=== PATIENT | male | born 1950 | race Caucasian/White ===

== ENCOUNTER 2016-11-01 12:18 | Outpatient (CLI) | payer MEDICARE, BC | END 2016-11-01 12:19 | disposition home or self-care (01) | DX: E88.81 Metabolic syndrome and other insulin resistance (principal); E78.5 Hyperlipidemia, unspecified; K57.90 Diverticulosis of intestine, part unspecified, without perforation or abscess without bleeding ==

== ENCOUNTER 2017-02-08 14:37 | Outpatient (CLI) | payer MEDICARE, BC ==
--- NOTE | 2017-02-08 18:36 | Ultrasound Report ---
SCROTAL DUPLEX: 02/08/2017 CLINICAL INDICATION: Palpable abnormality left side. TECHNIQUE: Real-time scanning was performed with hobbies and crafts sales representative static images obtained. The right testicle measures 3.2 x 2.7 x 1.8 cm, and the left testicle measures 3.3 x 2.4 x 1.8 cm. B oth testicles demonstrate normal flow and echotexture. The epididymides are unremarkable. No hydroc mitra, varicocele, or hernia is identified. Scanning in the region of palpable abnormality identified by the patient reveals no discrete abnormality. IMPRESSION: NORMAL SCROTAL DUPLEX. JOB #: [id number] EXT JOB #:
== END 2017-02-08 14:38 | disposition home or self-care (01) ==
LOC: DI 14:37
PROVIDERS: ATTEND Family Medicine
DX: N43.40 Spermatocele of epididymis, unspecified (principal)
CPT/HCPCS: 76870

== ENCOUNTER 2017-06-22 10:42 | Outpatient (CLI) | payer MEDICARE, BC | END 2017-06-22 10:43 | disposition home or self-care (01) | LOC: SC 10:42 | PROVIDERS: ATTEND Nurse Practitioner Family | DX: G47.33 Obstructive sleep apnea (adult) (pediatric) (principal); G47.23 Circadian rhythm sleep disorder, irregular sleep wake type | CPT/HCPCS: 99213; G0463; 99212 ==

== ENCOUNTER 2017-11-16 09:01 | Outpatient (CLI) | payer MEDICARE, BC ==
--- NOTE | 2017-11-16 18:56 | MRI Report ---
EXAM: LEFT SHOULDER MRI WITHOUT CONTRAST EXAM DATE: 11/16/2017 09:57 AM. CLINICAL HISTORY: Left shoulder rotator cuff tear. COMPARISON: None. TECHNIQUE: Multiplanar, multisequence T1-weighted and fluid-sensitive sequences of the shoulder witho ut contrast. Other: None. FINDINGS: Acromioclavicular Region: Deformity seen of the distal clavicle with hyperostosis and there is high p osition of the distal clavicle relative to the acromion consistent with prior fracture and probable a cromioclavicular joint separation. There is ankylosis of the acromioclavicular joint. Type II acromio n configuration. Small fluid collection subacromial/subdeltoid bursa. Glenohumeral Region: No subluxation. No effusion or loose bodies. The articular cartilage is unremark able. The glenohumeral ligaments and joint capsule are unremarkable. Bone Marrow: Subcortical degenerative cyst 1.5 cm in height and 7 mm in diameter lesser tuberosity. Labrum: The labrum is unremarkable on this nonarthrographic study. Musculature/Rotator Cuff: The rotator cuff muscles are without atrophy or fatty replacement. There is a partial tear infraspinatus musculotendinous junction fluid signal, 4.5 mm in diameter and 1.1 cm i n length (image 29 series 401). Thickening and intermediate signal is noted of the supraspinatus tend on consistent with supraspinatus tendinosis. Possible tiny 2 mm undersurface fluid signal tear distal anterior supraspinatus tendon. There is distal infraspinatus tendinosis. Small undersurface tear 4 m m, 1 mm thickness undersurface distal infraspinatus tendon (image 13 series 501). Thickening and inte rmediate signal is noted of the subscapularis tendon. There is extensive subscapularis tendinosis. Biceps Tendon: The long head of the biceps tendon and biceps irwin are intact. Other: The subcutaneous tissues are unremarkable. IMPRESSION: 1. Diffuse severe rotator cuff tendinosis with no complete rotator cuff tear identified. 2. There is fluid signal partial interstitial tear infraspinatus musculotendinous junction. 3. Negative for labral tear or internal derangement. RADIA MUSCULOSKELETAL RADIOLOGY SECTION Referring Provider Line: [phone] SITE ID: [id number]
== END 2017-11-16 09:02 | disposition home or self-care (01) ==
LOC: DI 09:01
PROVIDERS: ATTEND Orthopaedic Surgery
DX: M65.819 Other synovitis and tenosynovitis, unspecified shoulder (principal)

== ENCOUNTER 2018-01-03 09:30 | Outpatient (CLI) | payer MEDICARE, BC ==
[2018-01-03 12:36] LABS: BASOPHILS # (AUTO) 0.1 10^3/uL (0.0-0.1); BASOPHILS % (AUTO) 1.8 %; EOSINOPHILS # (AUTO) 0.2 10^3/uL (0.0-0.7); EOSINOPHILS % (AUTO) 4.9 %; HGB - HEMOGLOBIN 15.2 g/dL (14.0-18.0); LYMPHOCYTES # (AUTO) 1.2 10^3/uL (1.5-3.5); LYMPHOCYTES % (AUTO) 30.9 %; MEAN CORPUSCULAR HEMOGLOBIN 31.2 pg (27.0-31.0); MEAN CORPUSCULAR HGB CONC 33.9 g/dL (32.0-36.0); MEAN CORPUSCULAR VOLUME 92.1 fL (80.0-94.0); MEAN PLATELET VOLUME 7.8 fL (7.4-11.4); MONOCYTES # (AUTO) 0.6 10^3/uL (0.0-1.0); NEUTROPHILS # (AUTO) 1.9 10^3/uL (1.5-6.6); NEUTROPHILS % (AUTO) 48.4 %; PLT - PLATELET COUNT 221 10^3/uL (130-450); RED BLOOD COUNT 4.87 10^6/uL (4.70-6.10); RED CELL DISTRIBUTION WIDTH 13.4 % (12.0-15.0)
[2018-01-03 12:48] LABS: ALBUMIN 4.2 g/dL (3.2-5.5); ALKALINE PHOSPHATASE 40 IU/L (42-121); ALT ALANINE AMINOTRANSFERASE 35 IU/L (10-60); AST ASPARTATE AMINOTRANSFERASE 32 IU/L (10-42); BUN - BLOOD UREA NITROGEN 15 mg/dL (6-20); CALCIUM 9.1 mg/dL (8.5-10.3); CARBON DIOXIDE - CO2 26 mmol/L (21-32); CHLORIDE 105 mmol/L (101-111); CREATININE 0.9 mg/dL (0.6-1.2); GFR - MDRD 84 (>89); GLUCOSE 108 mg/dL (70-100); SODIUM 137 mmol/L (135-145); TOTAL PROTEIN 7.4 g/dL (6.7-8.2)
[2018-01-03 12:49] LABS: ALBUMIN/GLOBULIN RATIO 1.3 (1.0-2.2); CHOL/HDL RATIO 3.7 (<5.0); CHOLESTEROL 159 mg/dL; HDL CHOLESTEROL 43 mg/dL; LDL CHOLESTEROL,CALCULATED 96 mg/dL; LDL/HDL RATIO 2.2 (<3.6); VLDL CHOLESTEROL 20 mg/dL
== END 2018-01-03 09:31 | disposition home or self-care (01) ==
LOC: LAB.WCP 09:30
PROVIDERS: ATTEND Family Medicine
DX: I10 Essential (primary) hypertension (principal); K59.00 Constipation, unspecified; E78.9 Disorder of lipoprotein metabolism, unspecified; Z12.5 Encounter for screening for malignant neoplasm of prostate
CPT/HCPCS: 36415; 80053; 80061; 84443; 85025; G0103; 83721; 84153

== ENCOUNTER 2018-07-06 13:51 | Outpatient (CLI) | payer MEDICARE, BC | END 2018-07-06 13:52 | disposition home or self-care (01) | LOC: SC 13:51 | PROVIDERS: ATTEND Nurse Practitioner Family | DX: G47.33 Obstructive sleep apnea (adult) (pediatric) (principal) | CPT/HCPCS: 99214; G0463; 99212 ==

== ENCOUNTER 2019-02-14 10:09 | Outpatient (CLI) | payer MEDICARE, BC ==
[2019-02-14 12:43] LABS: BASOPHILS % (AUTO) 0.8 %; EOSINOPHILS # (AUTO) 0.2 10^3/uL (0.0-0.7); HGB - HEMOGLOBIN 14.8 g/dL (14.0-18.0); LYMPHOCYTES # (AUTO) 1.5 10^3/uL (1.5-3.5); LYMPHOCYTES % (AUTO) 32.2 %; MEAN CORPUSCULAR VOLUME 91.2 fL (80.0-94.0); MEAN PLATELET VOLUME 7.8 fL (7.4-11.4); MONOCYTES # (AUTO) 0.6 10^3/uL (0.0-1.0); MONOCYTES % (AUTO) 13.1 %; NEUTROPHILS # (AUTO) 2.3 10^3/uL (1.5-6.6); NEUTROPHILS % (AUTO) 49.9 %; PLT - PLATELET COUNT 201 10^3/uL (130-450); RED BLOOD COUNT 4.79 10^6/uL (4.70-6.10); RED CELL DISTRIBUTION WIDTH 12.9 % (12.0-15.0); WHITE BLOOD COUNT 4.7 x10^3/uL (4.8-10.8)
[2019-02-14 12:55] LABS: HB2 TOTAL 16.4 g/dL; HEMOGLOBIN A1C 0.62 g/dL; HEMOGLOBIN A1C % 5.6 % (4.6-6.2)
[2019-02-14 12:59] LABS: ALBUMIN 3.8 g/dL (3.2-5.5); ALBUMIN/GLOBULIN RATIO 1.2 (1.0-2.2); ALKALINE PHOSPHATASE 39 IU/L (42-121); ALT ALANINE AMINOTRANSFERASE 24 IU/L (10-60); AST ASPARTATE AMINOTRANSFERASE 27 IU/L (10-42); BILIRUBIN,TOTAL 0.8 mg/dL (0.2-1.0); BUN - BLOOD UREA NITROGEN 18 mg/dL (6-20); CALCIUM 9.1 mg/dL (8.5-10.3); CARBON DIOXIDE - CO2 23 mmol/L (21-32); CHLORIDE 107 mmol/L (101-111); CHOL/HDL RATIO 2.6 (<5.0); CHOLESTEROL 115 mg/dL; CREATININE 0.8 mg/dL (0.6-1.2); GFR - MDRD 96 (>89); GLUCOSE 96 mg/dL (70-100); HDL CHOLESTEROL 44 mg/dL; LDL CHOLESTEROL,CALCULATED 59 mg/dL; LDL/HDL RATIO 1.3 (<3.6); SODIUM 137 mmol/L (135-145); TOTAL PROTEIN 7.1 g/dL (6.7-8.2); VLDL CHOLESTEROL 12 mg/dL
== END 2019-02-14 10:10 | disposition home or self-care (01) ==
LOC: LAB.WCP 10:09
PROVIDERS: ATTEND Family Medicine
DX: I10 Essential (primary) hypertension (principal); R73.01 Impaired fasting glucose; E78.5 Hyperlipidemia, unspecified
CPT/HCPCS: 36415; 80053; 80061; 83036; 83721; 85025

== ENCOUNTER 2019-10-23 08:45 | Outpatient (CLI) | payer MEDICARE, BC ==
--- NOTE | 2019-10-23 09:28 | SLEEP CARE CONSULTATION ---
Information from patient questionnaire entered by Mireay Devine. I have reviewed and concur with the information entered by Mireya Devine. This document represents the service I personally performed and the decisions made by me, Christen Torres, RN, MSN, [employer]. History of Present Illness Previous diagnosis: Mild, Obstructive Sleep Apnea-Hypopnea Syndrome AHI: 6.2 Reason for follow up: first compliance after device update Equipment type: CPAP Equipment obtained from: [facility] Mask style: Nasal pillows Mask brand: Respironics Backup mask available: Yes Last cushion change: 6 weeks ago HPI additional information: Patient started his new CPAP but the auto off was not functioning. He keeps his CPAP below his bed in a drawer with mask only showing and depends on the auto off feature. During this time, his spouse became ill, seen by her provider and hospitalized for about 3 weeks and he forgot about the new CPAP as it was not working like he needs and so began using his old CPAP during this time. He called yesterday to [facility] to get the device looked at no call back yet. He also has not been obtaining updated supplies yet. CPAP Compliance Data - Data Reviewed with Patient Average duration of nightly device use: 8.95 Compliance rate %: 20 (first 30 days)(100 on old device last 30 days) Current pressure setting (cmH2O): 6 Humidity settin Heated hose settin Average residual AHI: 2.8 (new)(3.6 - old) Average large leak: 30-42 sec Subjective Patient concerns: reports: other (Occasionally morning facial stauffer from straps -mask headgear obtained in August ). denies: aerophagia, mask discomfort, air blowing in eyes, mask leak noise, condensation in mask/hose, nasal congestion, dry mouth, nose, throat, epistaxis Observed to snore while using device: No Current pressure setting perceived as: comfortable On therapy, patient: reports: sleeping better, awakening more refreshed, being more awake and alert during the day, more rested overall, drowsiness while driving Initial [place] Sleepiness Scale score: 6 Current [place] Sleepiness Scale score: 7 Allergies and Home Medications Known drug allergies: No Home medication list reviewed: Yes (changes are losartan increased to 25mg daily ) Review of Systems Review of systems same as previous: Yes Physical Exam Blood Pressure: 120/80 Cuff size: long Heart Rate: 71 O2 Saturation: 96 Height: 6 ft 1.5 in Weight: 288 lb 3.2 oz Weight change since last visit: gained 8 pounds Body Mass Index: 37.5 BMI Classification: Obese Impression and Plan 1. Obstructive Sleep Apnea-Hypopnea Syndrome, mild , with poor treatment compliance of new device and good compliance of old CPAP and good apnea control. On CPAP therapy, the patient has better sleep quality and is more rested overall. In regards to his compliance of new device, it appears the auto off needs to be repaired or replaced. Due to busyness of life schedule with spouse hospitalized he forgot he was using the old CPAP instead of new due to its malfunciton. Compliance guidelines and follow up will be scheduled accordingly. To reduce mask stauffer, he is advised to loosen mask slightly. He already uses a type of CPAP pillow. Pad a Cheek cloth skin barrier samples shown that can be ordered to reduce mask stauffer. A pamphlet given about the product was given. He has gained weight which can increase his apnea severtiy and CPAP pressure if continued. He is advised to lose weight. He is advised to consider a diet consultation as a health and wellness coach to get him to his weight loss goal. He would like to lose 40 pounds eventually. Symptoms to report for pressure adjustment discussed. Patient's apnea severity and rationale for treatment to reduce apnea, improve sleep quality and reduce cardiovascular and cerebrovascular events was reviewed. I also reviewed the benefit of consistent device use of CPAP for hypertension. Since his apnea is more severe supine, he is advised to avoid supine sleep if unable to use CPAP, with pillow positioning. * Continue CPAP pressure at 6 cmH2O * Restart new CPAP * Contact Dee re auto -off * Notify me if snoring with mask or feeling that the pressure is too much or too little * Attempt to lose weight * Call this office if any problems using CPAP * Return for follow up in 1 month , or sooner if concerns arise Time Spent with Patient (minutes): 30 I spent 100% of this visit face to face with the patient with greater than 50% of this was spent time counseling the patient and coordination of care.
[2019-10-23 09:29] VITALS: BP 120/80
== END 2019-10-23 08:46 | disposition home or self-care (01) ==
LOC: SC 08:45
PROVIDERS: ATTEND Nurse Practitioner Family
DX: G47.33 Obstructive sleep apnea (adult) (pediatric) (principal); E66.9 Obesity, unspecified; Z68.37 Body mass index [BMI] 37.0-37.9, adult
CPT/HCPCS: 99214; G0463; 99212

== ENCOUNTER 2019-11-14 08:58 | Outpatient (CLI) | payer MEDICARE, BC ==
--- NOTE | 2019-11-14 10:06 | SLEEP CARE CONSULTATION ---
Information from patient questionnaire entered by Mireya Devine. I have reviewed and concur with the information entered by Mireya Devine. This document represents the service I personally performed and the decisions made by me, Christen Torres, RN, MSN, DYE [employer]. History of Present Illness Previous diagnosis: Mild, Obstructive Sleep Apnea-Hypopnea Syndrome AHI: 6.2 Reason for follow up: one month (last chance for compliance) Equipment type: CPAP Equipment obtained from: [facility] Mask style: Nasal pillows Backup mask available: Yes (old mask ) Last cushion change: a month ago HPI additional information: Mask stauffer reduced with headgear adjustment. He has started to work on losing weight. He has adjusted to the new CPAP and has to disconnect hose for the device to turn off on his own as he keeps his CPAP in a drawer under his bed. He has been able to contact [facility] to get supply replacement system in place. CPAP Compliance Data - Data Reviewed with Patient Average duration of nightly device use: 7.5 Compliance rate %: 70 (new CPAP ) Current pressure setting (cmH2O): 6 Humidity settin Heated hose settin Average residual AHI: 4.8 Average large leak: 1 min 23 sec Subjective Missed days of use due to: reports: other (used old CPAP ) Patient concerns: denies: aerophagia, mask discomfort, air blowing in eyes, mask leak noise, condensation in mask/hose, nasal congestion, dry mouth, nose, throat, epistaxis Observed to snore while using device: No Current pressure setting perceived as: comfortable On therapy, patient: reports: sleeping better, awakening more refreshed, being more awake and alert during the day, more rested overall. denies: drowsiness while driving Initial [place] Sleepiness Scale score: 6 Current [place] Sleepiness Scale score: 7 Allergies and Home Medications Known drug allergies: No Home medication list reviewed: Yes (Stopped aspirin, polyglycol replaced with miralax /. no other changes) Review of Systems Review of systems same as previous: Yes Physical Exam Blood Pressure: 124/82 Cuff size: wrist Heart Rate: 72 O2 Saturation: 97 Height: 6 ft 1.5 in Weight: 284 lb 9.6 oz Weight change since last visit: lost 4 pounds Body Mass Index: 37.0 BMI Classification: Obese Impression and Plan 1. Obstructive Sleep Apnea-Hypopnea Syndrome, mild but severe supine , with good treatment compliance and good apnea control. On CPAP therapy, the patient has better sleep quality and is more rested overall. Patient has lost weight since last seen as advised and has been successful by tracking his intake. His residual AHI is slightly higher than last visit even with weight loss. Patient plans to lose about 30 pounds this year. Thus he was advised how his weight affects his CPAP pressure and symptoms to report discussed. I also showed him how to monitor his AHI on his CPAP and to call me if elevated above 5 with rationale discussed. He would prefer not to change to an autoCPAP at this time. Patient's apnea severity and rationale for treatment to reduce apnea, improve sleep quality and reduce cardiovascular and cerebrovascular events was reviewed. I also reviewed the benefit of consistent device use of CPAP for hypertension. Since patient has more severe apnea in supine position, patient advised to avoid supine sleep with pillow positioning if unable to use CPAP while ill or if without electricity to reduce apnea risk. * Continue CPAP pressure at 6 cmH2O * Notify me if snoring with mask or feeling that the pressure is too much or too little * Continue to lose weight * Call this office if any problems using CPAP * Return for follow up in 1 year , or sooner if concerns arise Time Spent with Patient (minutes): 20 I spent 100% of this visit face to face with the patient with greater than 50% of this was spent time counseling the patient and coordination of care.
[2019-11-14 10:07] VITALS: BP 124/82
== END 2019-11-14 08:59 | disposition home or self-care (01) ==
LOC: SC 08:58
PROVIDERS: ATTEND Nurse Practitioner Family
DX: G47.33 Obstructive sleep apnea (adult) (pediatric) (principal); E66.9 Obesity, unspecified; Z68.37 Body mass index [BMI] 37.0-37.9, adult
CPT/HCPCS: 99213; G0463; 99212

== ENCOUNTER 2020-03-27 11:50 | Outpatient (CLI) | payer MEDICARE, BC ==
--- NOTE | 2020-03-27 12:26 | XRAY Report ---
PROCEDURE: Chest 2 View X-Ray INDICATIONS: Cough TECHNIQUE: 2 view(s) of the chest. COMPARISON: None. FINDINGS: Surgical changes and devices: None. Lungs and pleura: No pleural effusions or pneumothorax. Lungs are clear. Mediastinum: Mediastinal contours are normal. Heart size is normal. Bones and chest wall: No suspicious bony abnormalities. Soft tissues appear unremarkable. IMPRESSION: No acute pulmonary process demonstrated radiographically. Reviewed by: Jethro Gonzalez MD on 03/27/2020 12:24 PM PDT Approved by: Jethro Gonzalez MD on 03/27/2020 12:24 PM PDT Station ID: [id number]
== END 2020-03-27 11:51 | disposition home or self-care (01) ==
LOC: DI 11:50
PROVIDERS: ATTEND Family Medicine
DX: R05 Cough (principal)
CPT/HCPCS: 71046

== ENCOUNTER 2020-08-28 09:03 | Outpatient (CLI) | payer MEDICARE, BC ==
--- NOTE | 2020-08-28 09:43 | XRAY Report ---
PROCEDURE: Shoulder 3 View LT INDICATIONS: LEFT SHOULDER PAIN TECHNIQUE: 4 views of the shoulder were acquired. COMPARISON: Prior shoulder MRI 11/16/2017 and 2 view shoulder plain films 11/10/2017. FINDINGS: Bones: No acute fractures or dislocations, but there is distortion of the AC joint and interspace be tween the coracoid process and the undersurface of the distal clavicle, as was previously identified in November 2017. No new abnormality is seen.. No suspicious bony lesions. Visualized ribs appear inta ct. Soft tissues: No suspicious soft tissue calcifications. IMPRESSION: Old trauma is the presumed cause of the distortion of the left shoulder, indicating like lihood of both osteoarthritic change and prior healed and partially healed fracture margins. No defin ite acute disease. Reviewed by: Daniel Mccoy MD on 08/28/2020 9:42 AM PST Approved by: Daniel Mccyo MD on 08/28/2020 9:42 AM PST Station ID: [id number]
== END 2020-08-28 23:59 | disposition home or self-care (01) ==
LOC: DI.N 09:03
PROVIDERS: ATTEND Orthopaedic Surgery
DX: M25.512 Pain in left shoulder (principal)

== ENCOUNTER 2020-12-03 12:54 | Outpatient (CLI) | payer MEDICARE, BC ==
--- NOTE | 2020-12-03 13:38 | SLEEP CARE CONSULTATION ---
Information from patient questionnaire entered by Hu Ocasio. I have reviewed and concur with the information entered by Hu Ocasio. This document represents the service I personally performed and the decisions made by me, Lisa Lau ARNP. History of Present Illness Service Date and Time: 12/03/2020 1254 Previous diagnosis: Mild, Obstructive Sleep Apnea-Hypopnea Syndrome AHI: 6.2 Reason for follow up: annual (Last seen 11/2019) Equipment type: CPAP Equipment obtained from: [facility] (getting supplies as needed) Mask style: Nasal pillows Backup mask available: Yes (old mask) Last cushion change: 2 weeks ago Prior sleep studies: Yes Year and Where: 2013 [facility] additional information: HANG MANCERA was diagnosed to have mild, AHI 6.2, obstructive sleep apnea-hypopnea syndrome and returned today for CPAP therapy annual follow-up. CPAP Compliance Data - Data Reviewed with Patient Average duration of nightly device use: 7 h 31 min Compliance rate %: 96.7 Current pressure setting (cmH2O): 6 Humidity settin Heated hose settin Average residual AHI: 2.4 Average large leak: 3 sec Compliance data discussion: About a year ago he developed shoulder pain. He also got a new bed that is a twin and adjustable. He now moves a lot more when sleeping which is putting more stress on mask connections. Subjective Missed days of use due to: reports: mask issues, travel Patient concerns: reports: mask discomfort, air blowing in eyes, mask leak noise. denies: aerophagia, condensation in mask/hose, nasal congestion, dry mouth, nose, throat, epistaxis, other Observed to snore while using device: No Current pressure setting perceived as: comfortable On therapy, patient: reports: sleeping better, awakening more refreshed, being more awake and alert during the day, more rested overall. denies: drowsiness while driving Initial [place] Sleepiness Scale score: 6 (in 2013) Current [place] Sleepiness Scale score: 6 Allergies and Home Medications Drug allergies reviewed: Yes (NKDA) Home medication list reviewed: Yes (no changes) Review of Systems Review of systems same as previous: Yes (no changes) Physical Exam Heart Rate: 82 O2 Saturation: 95 Height: 6 ft 1.5 in Weight: 275 lb Body Mass Index: 35.8 BMI Classification: Obese Impression and Plan 1. Obstructive Sleep Apnea-Hypopnea Syndrome, mild, with good treatment compliance and good apnea control. On CPAP therapy, the patient has better sleep quality and is more rested overall. He moves more, turning frequently from side to side and this seems to be causing more mask leaking with air in his eyes. This is resolved with adjusting his mask. I advised him to try a CPAP pillow. Mask leaks can be reduced by washing mask daily and changing mask cushions more frequently to improve mask seal and comfort. Additionally, mask leaks predominately from when patient sleeps on their side can be reduced by using a CPAP pillow. A CPAP pillow sample was shown. This and other styes can be purchased online. He voiced understanding and agreement. Patient's apnea severity and rationale for treatment to reduce apnea, improve sleep quality and reduce cardiovascular and cerebrovascular events was reviewed. I also reviewed the benefit of consistent device use of CPAP for hypertension. * Continue auto CPAP pressure at 6 cmH2O * Notify me if snoring with mask or feeling that the pressure is too much or too little * Attempt to lose weight * Call this office if any problems using CPAP * Return for follow up in 1 year, or sooner if concerns arise Counseling Topics: Spare mask, Weight loss health impact Visit Type: In Office Time Spent with Patient (minutes): 20 Provider Statement: I spent 100% of the Face to Face Visit with the patient with greater than 50% spent counseling the patient and coordination of care.
== END 2020-12-03 12:55 | disposition home or self-care (01) ==
LOC: SC 12:54
PROVIDERS: ATTEND Nurse Practitioner Family
DX: G47.33 Obstructive sleep apnea (adult) (pediatric) (principal); E66.9 Obesity, unspecified; Z68.35 Body mass index [BMI] 35.0-35.9, adult
CPT/HCPCS: 99213; G0463; 99212

== ENCOUNTER 2020-12-22 08:00 | Outpatient (CLI) | payer MEDICARE, BC ==
[2020-12-22 18:21] LABS: BASOPHILS % (AUTO) 1.2 %; EOSINOPHILS # (AUTO) 0.1 10^3/uL (0.0-0.7); EOSINOPHILS % (AUTO) 2.6 %; HCT - HEMATOCRIT 45.3 % (42.0-52.0); HGB - HEMOGLOBIN 15.7 g/dL (14.0-18.0); LYMPHOCYTES # (AUTO) 0.8 10^3/uL (1.5-3.5); LYMPHOCYTES % (AUTO) 23.8 %; MEAN CORPUSCULAR HGB CONC 34.7 g/dL (32.0-36.0); MEAN CORPUSCULAR VOLUME 92.4 fL (80.0-94.0); MEAN PLATELET VOLUME 9.5 fL (7.4-11.4); MONOCYTES # (AUTO) 0.6 10^3/uL (0.0-1.0); MONOCYTES % (AUTO) 16.4 %; NEUTROPHILS # (AUTO) 1.9 10^3/uL (1.5-6.6); NEUTROPHILS % (AUTO) 55.7 %; PLT - PLATELET COUNT 246 10^3/uL (130-450); RED CELL DISTRIBUTION WIDTH 12.6 % (12.0-15.0); WHITE BLOOD COUNT 3.4 x10^3/uL (4.8-10.8)
[2020-12-22 18:51] LABS: ALBUMIN 4.2 g/dL (3.2-5.5); ALBUMIN/GLOBULIN RATIO 1.2 (1.0-2.2); ALKALINE PHOSPHATASE 42 IU/L (42-121); ALT ALANINE AMINOTRANSFERASE 23 IU/L (10-60); AST ASPARTATE AMINOTRANSFERASE 22 IU/L (10-42); BUN - BLOOD UREA NITROGEN 18 mg/dL (6-20); CALCIUM 9.2 mg/dL (8.5-10.3); CARBON DIOXIDE - CO2 26 mmol/L (21-32); CHLORIDE 103 mmol/L (101-111); CHOL/HDL RATIO 3.4 (<5.0); CHOLESTEROL 148 mg/dL; CREATININE 0.9 mg/dL (0.6-1.2); GFR - MDRD 83 (>89); GLUCOSE 104 mg/dL (70-100); HDL CHOLESTEROL 44 mg/dL; LDL CHOLESTEROL,CALCULATED 80 mg/dL; LDL/HDL RATIO 1.8 (<3.6); POTASSIUM 4.2 mmol/L (3.5-5.0); SODIUM 136 mmol/L (135-145); TOTAL PROTEIN 7.6 g/dL (6.7-8.2); TRIGLYCERIDES 120 mg/dL; VLDL CHOLESTEROL 24 mg/dL
[2020-12-22 18:52] LABS: THYROID STIMULATING HORMONE 2.06 uIU/mL (0.34-5.60)
[2020-12-22 20:46] LABS: ESTIMATED AVERAGE GLUCOSE 111 mg/dL (70-100); HEMOGLOBIN A1c% 5.5 % (4.27-6.07)
== END 2020-12-22 23:59 | disposition home or self-care (01) ==
LOC: LAB.WCP 08:00
PROVIDERS: ATTEND Internal Medicine
DX: I10 Essential (primary) hypertension (principal); R73.01 Impaired fasting glucose; Z12.5 Encounter for screening for malignant neoplasm of prostate; F34.1 Dysthymic disorder; E78.5 Hyperlipidemia, unspecified
CPT/HCPCS: 36415; 80053; 80061; 83036; 84443; 85025; G0103; 83721; 84153

== ENCOUNTER 2020-12-29 08:00 | Outpatient (CLI) | payer MEDICARE, BC | END 2020-12-29 23:59 | disposition home or self-care (01) | LOC: LAB.WCP 08:00 | PROVIDERS: ATTEND Internal Medicine | DX: G62.9 Polyneuropathy, unspecified (principal) | CPT/HCPCS: 36415; 81599; 82607; 84155; 84165; 84207; 86334 ==

== ENCOUNTER 2021-08-26 08:55 | Outpatient (CLI) | payer MEDICARE, BC ==
[2021-08-26] MEDS ORDERED: ALBUTEROL 1 PUFF INH STA (11:48)
== END 2021-08-26 08:56 | disposition home or self-care (01) ==
LOC: RT 08:55
PROVIDERS: ATTEND Internal Medicine
DX: R06.2 Wheezing (principal); F17.200 Nicotine dependence, unspecified, uncomplicated
CPT/HCPCS: 94060; 94729

== ENCOUNTER 2021-12-25 13:10 | Outpatient (CLI) | payer MEDICARE, BC ==
--- NOTE | 2021-12-25 13:30 | XRAY Report ---
PROCEDURE: Cervical Spine 2 View INDICATIONS: DJD, CERVICAL SPINE TECHNIQUE: 3 view(s) of the cervical spine were acquired. COMPARISON: None. FINDINGS: C-SPINE: No acute, displaced fracture or malalignment. The vertebral body heights are maintained. Mil d disc space height loss and anterior endplate osteophytosis, most prominent at C3-4 and C5-6. Straig htening, which may be due to spasm or positioning. SOFT TISSUES: No prevertebral soft tissue thickening. IMPRESSION: 1.Cervical spine degeneration. Reviewed by: Darwin Garner MD on 12/25/2021 1:29 PM PDT Approved by: Darwin Garner MD on 12/25/2021 1:29 PM PDT Station ID: [id number]
== END 2021-12-25 13:11 | disposition home or self-care (01) ==
LOC: DI.N 13:10
PROVIDERS: ATTEND Internal Medicine
DX: M47.22 Other spondylosis with radiculopathy, cervical region (principal); M50.11 Cervical disc disorder with radiculopathy, high cervical region

== ENCOUNTER 2022-03-30 11:26 | Outpatient (CLI) | payer MEDICARE, BC ==
[2022-03-30 12:03] VITALS: BP 134/86
--- NOTE | 2022-03-30 12:03 | SLEEP CARE CONSULTATION ---
Information from patient questionnaire entered by Jane Rios MA. I have reviewed and concur with the information entered by Jane Rios MA. This document represents the service I personally performed and the decisions made by , Lisa Lau ARNP. History of Present Illness Service Date and Time: 03/30/2022 1126 Previous diagnosis: Mild, Obstructive Sleep Apnea-Hypopnea Syndrome AHI: 6.2 Reason for follow up: annual (LAST SEEN 11/2020, AMARJIT, CONKLIN 08/23/2019,) Equipment type: CPAP Equipment obtained from: Other ([facility]: getting supplies as needed but difficult to work with) Mask style: Nasal pillows Mask brand: Respironics (Nuance) Backup mask available: Yes (old mask) Last cushion change: 1 week Prior sleep studies: Yes Year and Where: 2013 [facility] HPI additional information: HANG MANCERA was diagnosed to have mild, AHI 6.2, obstructive sleep apnea-hypopnea syndrome and returned today for CPAP therapy annual follow-up. Sleep Study - Results Prior sleep studies: Yes Year and Where: 2013 [facility] CPAP Compliance Data - Data Reviewed with Patient Average duration of nightly device use: 7 HOURS 34 MINUTES Compliance rate %: 93.3 (12/28/2021-03/27/2022; 90 days; 88/90 days used) Current pressure setting (cmH2O): 6 Humidity settin Heated hose settin Average residual AHI: 2.5 Average large leak: 4 SECONDS Subjective Missed days of use due to: reports: travel Patient concerns: denies: aerophagia, mask discomfort, air blowing in eyes, mask leak noise, condensation in mask/hose, nasal congestion, dry mouth, nose, throat, epistaxis, other Observed to snore while using device: No Current pressure setting perceived as: comfortable On therapy, patient: reports: sleeping better, awakening more refreshed, being more awake and alert during the day, more rested overall. denies: drowsiness while driving Initial [place] Sleepiness Scale score: 6 (in 2013) Current [place] Sleepiness Scale score: 7 (03/30/2022) Allergies and Home Medications Known drug allergies: No Home medication list reviewed: Yes (Famotidine) Allergy and home medication list: Allergies No Known Drug Allergies Allergy (Verified 12/26/13 15:08) FAMATODINE Review of Systems Review of systems same as previous: Yes (no changes) Physical Exam Vital signs obtained and entered by: Suly RIOS CMA AAW Blood Pressure: 134/86 (LEFT, PULSE 78, RESP 18) Heart Rate: 79 O2 Saturation: 98 Height: 6 ft 1.5 in Weight: 275 lb (CLOTHES) Weight change since last visit: MAINTAIN Body Mass Index: 35.8 BMI Classification: Obese Impression and Plan 1. Obstructive Sleep Apnea-Hypopnea Syndrome, mild, with good treatment compliance and good apnea control. On CPAP therapy, the patient has better sleep quality and is more rested overall. Patient has significant improvement of his sleep apnea and is happy with current pressure settings. Patient denies problems with oral dryness, nasal congestion, epistaxis, skin irritation or aerophagia. Patient's apnea severity and rationale for treatment to reduce apnea, improve sleep quality and reduce cardiovascular and cerebrovascular events was reviewed. I also reviewed the benefit of consistent device use of CPAP for hypertension. 2. Obesity, unspecified. Currently patients BMI is 35.8. Obesity increases the risk of apnea, CPAP pressure requirements and overall health risks especially cardiovascular and diabetes. Thus patient is advised to lose weight. Weight loss can be done with reducing portion size, reducing refined foods and balancing content with vegetables, fruit and whole grain foods. In addition, patient encouraged to get regular exercise. * Continue CPAP pressure at 6 cmH2O * Notify me if snoring with mask or feeling that the pressure is too much or too little * Attempt to lose weight * Call this office if any problems using CPAP * Return for follow up in 1 year, or sooner if concerns arise Counseling Topics: Spare mask, Weight loss health impact Visit Type: In Office Time Spent with Patient (minutes): 22 Provider Statement: I spent 100% of the Face to Face Visit with the patient with greater than 50% spent counseling the patient and coordination of care.
== END 2022-03-30 11:27 | disposition home or self-care (01) ==
LOC: SC 11:26
PROVIDERS: ATTEND Nurse Practitioner Family
DX: G47.33 Obstructive sleep apnea (adult) (pediatric) (principal); E66.9 Obesity, unspecified; Z68.35 Body mass index [BMI] 35.0-35.9, adult
CPT/HCPCS: 99213; G0463; 99212

== ENCOUNTER 2022-05-26 08:13 | Outpatient (CLI) | payer MEDICARE, BC ==
--- NOTE | 2022-05-26 10:17 | CT Report ---
PROCEDURE: Low Dose Lung Cancer Screen INDICATIONS: HIST OF TOBACCO USE TECHNIQUE: Noncontrast low-dose axial images were acquired from the pulmonary apices to the posterior costophren ic angles. Multiplanar MIP reformats were then reconstructed. For radiation dose reduction, the follo wing was used: automated exposure control, adjustment of mA and/or kV according to patient size. COMPARISON: None. FINDINGS: Image quality: Excellent. Lungs and pleura: There are some small calcified and noncalcified pulmonary nodules noted throughout both lungs. The largest noncalcified pulmonary nodule is in the 2 to 3 mm range. There are associate d calcified right hilar and mediastinal lymph nodes consistent with prior granulomatous infection. There is some mild to moderate consolidation/scarring at the patient's right lung base. No pleural ef fusion is identified. Mediastinum: Heart size is normal. No pericardial effusion. No mediastinal adenopathy by size crit eria. Thoracic aorta and central pulmonary arteries are normal in size. Esophagus is normal in chato beatriz. No hiatal hernia. Bones and chest wall: No suspicious bony lesions. No vertebral body compression fractures. No axil antonio or supraclavicular adenopathy by size criteria. The thyroid is normal in size and there are no incidental findings. Abdomen: Visualized upper abdomen solid organs and bowel loops appear normal in the absence of contr ast. IMPRESSION: 1. Small calcified and noncalcified pulmonary nodules. The largest noncalcified pulmonary nodule at t he left apex is in the 2 to 3 mm range. Given the imaging findings I would recommended a noncontrast chest CT in approximately 1 year to evaluate for stability. 2. Mild/moderate area of consolidation/scarring at the patient's right lung base. 3. Mild atherosclerotic change. Reviewed by: John Bucio MD on 05/26/2022 10:16 AM PDT Approved by: John Bucio MD on 05/26/2022 10:16 AM PDT Station ID: [id number]
== END 2022-05-26 08:14 | disposition home or self-care (01) ==
LOC: DI 08:13
PROVIDERS: ATTEND Internal Medicine
DX: Z12.2 Encounter for screening for malignant neoplasm of respiratory organs (principal); F17.210 Nicotine dependence, cigarettes, uncomplicated; F17.290 Nicotine dependence, other tobacco product, uncomplicated

== ENCOUNTER 2022-11-05 07:13 | Outpatient (CLI) | payer MEDICARE, BC ==
--- NOTE | 2022-11-05 14:00 | XRAY Report ---
PROCEDURE: Knee 3 View RT INDICATIONS: KNEE PAIN TECHNIQUE: 3 views of the right knee(s) were acquired. COMPARISON: None. FINDINGS: Bones: No fractures or dislocations. No suspicious bony lesions. Moderate tricompartmental arthri tic narrowing most severe in the lateral compartment. Soft tissues: No joint effusion. Chondrocalcinosis is present. IMPRESSION: Arthritic changes as above. Reviewed by: Indu Vidal MD on 11/05/2022 1:58 PM PST Approved by: Idnu Vidal MD on 11/05/2022 1:58 PM PST Station ID: [id number]
--- NOTE | 2022-11-05 17:00 | MRI Report ---
PROCEDURE: KNEE WO - RT INDICATIONS: RT KNEE PAIN TECHNIQUE: Noncontrast sagittal PD fast spin echo and T2 fast spin echo with fat saturation, sagittal 3-D gradie nt sequence with fat saturation; coronal T1 spin echo and PD fast spin echo with fat saturation, and axial PD fast spin echo with fat saturation through the knee. COMPARISON: 11/05/2022 plain films FINDINGS: Image quality: Excellent. Menisci: There is vague linear oblique high T2 signal intensity traversing the middle and peripheral thirds of the posterior horn medial meniscus (series 6 image 26), suggestive of subtle oblique tearin g. There is a moderately displaced tear of the posterior horn lateral meniscus at the meniscal root l igament insertion site. Linear oblique high T2 signal intensity within the inner, middle, and periphe ral thirds of the lateral meniscal body and posterior horn, demonstrating inferior articular surface extension, indicating oblique tearing. Cruciate ligaments: There is "tram track" high T2/T1 signal intensity along the courses of the anteri or and posterior cruciate ligaments, consistent with myxoid degeneration. No evidence of tearing. Medial structures: The medial collateral ligament appears intact. Visualized portions of the pes ans erinus tendons appear normal. No abnormal bursal fluid. Lateral structures: The lateral collateral ligament demonstrates mild T2 signal elevation at the fem oral origin. The long and short heads of the biceps femoris tendon appear intact. The popliteus tend on appears normal. Iliotibial band appears normal. Anterior structures: The quadriceps and patellar tendons appear intact. Patellar alignment is aisha l. No femoral trochlear dysplasia or ventral trochlear prominence. No edema in the infrapatellar fa t pad. Bones and cartilage: No bone marrow contusions or fractures. There is mild tricompartmental periarti cular osteophyte formation. There is moderate articular cartilage loss diffusely overlying the weight bearing aspects of the medial femoral condyle and medial tibial plateau with superimposed high-grade articular cartilage loss overlying the mid and posterior weightbearing aspects of the medial femoral condyle. Moderate articular cartilage loss diffusely overlies the weightbearing aspects of the latera l femoral condyle and lateral tibial plateau. Superimposed high-grade articular cartilage loss overli es the posterior weightbearing aspect of the lateral tibial plateau. Articular cartilage fibrillation overlies the medial and lateral patellar facets. Joint space: There is a small knee joint effusion and a small Hill's cyst. Small ganglion cyst ethel g the popliteus. Normal appearing synovial plicae are incidentally noted. IMPRESSION: 1. Tricompartmental osteoarthritis with associated articular cartilage loss. 2. 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 3. Low-grade partial-thickness lateral collateral ligament tear. 4. Knee joint effusion. Small ganglion cyst along the popliteus. Reviewed by: Hyun Quick MD on 11/05/2022 4:58 PM PST Approved by: Hyun Quick MD on 11/05/2022 4:58 PM PST Station ID: [id number]
== END 2022-11-05 07:14 | disposition home or self-care (01) ==
LOC: DI 07:13
PROVIDERS: ATTEND Internal Medicine
DX: M17.11 Unilateral primary osteoarthritis, right knee (principal); S83.421A Sprain of lateral collateral ligament of right knee, initial encounter; M25.461 Effusion, right knee; M67.461 Ganglion, right knee; M23.8X1 Other internal derangements of right knee

== ENCOUNTER 2022-12-18 18:15 | Inpatient (IN) | payer MEDICARE, BC ==
[2022-12-18] MEDS ORDERED: iohexoL-300 100 ML VIAL ONE (18:47)
[2022-12-18] MEDS ORDERED: SODIUM CHLORIDE 0.9% 1,000 ML IV STA (18:47)
--- NOTE | 2022-12-18 18:47 | ED Physician Documentation ---
History of Present Illness - Stated complaint Stated Complaint: HIGH BP/DISORIENTED/DIZZY - Chief complaint Chief Complaint: Neuro - Additonal information Additional information: 72-year-old male was brought to the emergency department via private vehicle for evaluation of feeling lightheaded, dizzy and ataxic. Reportedly he was in the kitchen helping prepare dinner when he began to feel lightheaded and dizzy. States he felt off balance. He felt like he was in a fog in his brain. He felt things that were slowing down and then suddenly speeding up. He thought he might do well to sit down. His reports that he was unable to walk without holding onto a wall. She reports that he seemed to make nonsensical words. Patient denies chest pain or shortness of air. No nausea or vomiting. no diplopia, loss of vision. no tinnitus He does have a history of hypertension for which she takes hydrochlorothiazide. Denies any history of coronary artery disease or strokes. Has never been evaluated by systems integration advisor. Occasional cigar smoker. His SBP's typically range 110-130. He checked his blood pressure at home and it was 150/70. onset of symptoms 1600 Review of Systems Constitutional: reports: Reviewed and negative Cardiac: reports: Reviewed and negative Respiratory: reports: Reviewed and negative GI: reports: Reviewed and negative : reports: Reviewed and negative Skin: reports: Reviewed and negative Neurologic: reports: Confused, Other (Ataxia) PD PAST MEDICAL HISTORY - Past Medical History Cardiovascular: High cholesterol Respiratory: None, Sleep apnea Endocrine/Autoimmune: None GI: Colon polyps : None HEENT: None Psych: None Musculoskeletal: None Derm: None - Past Surgical History General: Colonoscopy Ortho: Other - Present Medications Home Medications: Ambulatory Orders Medication Instructions Recorded Confirmed Cetirizine HCl [Aller-Luis] 40 mg PO 12/26/13 12/26/13 Glucosamine Sulfate Dipot Chlr 1,000 mg PO 12/26/13 12/26/13 [Glucosamine] Multivitamin [Multi-Vitamin Daily] 1 each PO 12/26/13 12/26/13 [place]-3/Dha/Epa/Fish Oil [Fish Oil] 500 mg PO 12/26/13 12/26/13 Simvastatin 40 mg PO 12/26/13 12/26/13 - Allergies Allergies/Adverse Reactions: Allergies Allergy/AdvReac Type Severity Reaction Status Date / Time No Known Drug Allergies Allergy Verified 12/18/22 18:23 PD ED PE EXPANDED - General General: Alert, No acute distress - HEENT HEENT: PERRL, EOMI. No: Ears normal (Bilateral EACs 100% occluded with hard cerumen) - Cardiac Cardiac: Regular Rate, Radial strong equal, Pedal strong equal, Cap refill < 2 sec. No: Murmur Present - Respiratory Respiratory: Clear to ausultation marisel - Abdomen Abdomen: No: Tender to palpation - Derm Derm: Normal color, Warm and dry. No: Rash - Neuro Neuro: Alert and Oriented X 3, CNII-XII intact, Normal speech. No: Normal finger nose (Unsteady finger-nose. Unable to stand. Leans to the right when attempting to walk) - GCS Eye Opening: Spontaneous Motor: Obeys Commands Verbal: Oriented Total: 15 Results - Vitals Vitals: Vital Signs - 24 hr 12/18/22 12/18/22 12/18/22 18:23 18:26 19:02 Temperature 36.5 C 36.5 C Heart Rate 88 88 88 Heart Rate [ Sitting] Heart Rate [ Standing] Heart Rate [ Supine] Respiratory 16 16 16 Rate Blood Pressure 147/70 H 147/70 H 154/89 H Blood Pressure [Sitting] Blood Pressure [Standing] Blood Pressure [Supine] O2 Saturation 96 96 96 12/18/22 12/18/22 12/18/22 19:46 20:00 20:33 Temperature Heart Rate 82 80 Heart Rate [ 90 Sitting] Heart Rate [ 82 Standing] Heart Rate [ 88 Supine] Respiratory 16 20 Rate Blood Pressure 140/78 H 139/87 H Blood Pressure 150/80 H [Sitting] Blood Pressure 138/82 H [Standing] Blood Pressure 145/77 H [Supine] O2 Saturation 96 96 12/18/22 12/18/22 21:21 21:30 Temperature Heart Rate 87 82 Heart Rate [ Sitting] Heart Rate [ Standing] Heart Rate [ Supine] Respiratory 18 19 Rate Blood Pressure 140/90 H 127/79 Blood Pressure [Sitting] Blood Pressure [Standing] Blood Pressure [Supine] O2 Saturation 97 96 Oxygen O2 Source Room air - EKG (time done) 1845 EKG releavant findings:: EKG personally interpreted by author of this note. Relevant findings are: Rate: Rate (enter#) (72) Rhythm: NSR [place]: Normal Intervals: Prolonged HI. No: Prolonged QT QRS: Normal Ischemia: Normal ST segments Compare to prior EKG: Old EKG unavailable Computer interpretation: Agree with computer - Labs Labs: Laboratory Tests 12/18/22 12/18/22 12/18/22 18:42 18:42 18:42 WBC 6.6 RBC 4.65 L Hgb 14.8 Hct 43.6 MCV 93.8 MCH 31.8 H MCHC 33.9 RDW 12.5 Plt Count 194 MPV 9.1 Neut # (Auto) 5.1 Lymph # (Auto) 0.7 L [place] # (Auto) 0.8 Eos # (Auto) 0.0 Baso # (Auto) 0.0 Absolute Nucleated RBC 0.00 Nucleated RBC % 0.0 PT INR Sodium 133 L Potassium 3.8 Chloride 100 L Carbon Dioxide 25 Anion Gap 8.0 BUN 22 H Creatinine 1.2 Estimated GFR (MDRD) 60 L Glucose 151 H Calcium 8.6 Total Bilirubin 0.7 AST 30 ALT 31 Alkaline Phosphatase 49 Troponin I High Sens 4.0 Total Protein 7.1 Albumin 4.0 Globulin 3.1 Albumin/Globulin Ratio 1.3 Lipase 37 12/18/22 18:56 WBC RBC Hgb Hct MCV MCH MCHC RDW Plt Count MPV Neut # (Auto) Lymph # (Auto) [place] # (Auto) Eos # (Auto) Baso # (Auto) Absolute Nucleated RBC Nucleated RBC % PT 11.5 INR 1.0 Sodium Potassium Chloride Carbon Dioxide Anion Gap BUN Creatinine Estimated GFR (MDRD) Glucose Calcium Total Bilirubin AST ALT Alkaline Phosphatase Troponin I High Sens Total Protein Albumin Globulin Albumin/Globulin Ratio Lipase - Rads (name of study) cxr Relevant Findings:: Final report received (no acute cardiopulmonary process) angio neck Relevant Findings:: Final report received (Very mild bilateral proximal internal carotid artery stenotic disease.) Angio head Relevant Findings:: Final report received (No findings supportive of a diagnosis of vertebrobasilar insufficiency. Enhancing structure at the medial aspect of the right temporal lobe measuring 8 mm. An enhancing venous structure is favored. Cannot exclude an enhancing mass. Otherwise unremarkable appearance of the brain for patient age) PD Medical Decision Making - ED course Complexity details: reviewed results, re-evaluated patient, d/w patient, d/w art sales consultant (Dr. kearney tele-stroke neurology) ED course: 72-year-old male presents emergency department for evaluation of acute onset Disequilibrium and ataxia. Symptoms began about 4 PM. He was standing in the kitchen cooking dinner when he began to feel off balance. He felt a rushing sensation in his head. His reports that he had difficulty walking. On presentation to the emergency department here his NIHSS is 2, owing for limb ataxia in BUE. However he is noted to have ataxia and is unable to ambulate without listing to the right. I did obtain a CBC and electrolytes as well as a high-sensitivity troponin. Per my interpretation no acute abnormalities. No metabolic findings to suggest source of symptoms. An EKG is nonischemic. Troponin is negative. Doubt ACS. Patient is essentially normotensive without tachycardia. CT angiograms of the head and neck will be ordered to evaluate for the possibility of vertebrobasilar insufficiency. 2019: I spoken on the phone with telestroke neurologist Dr. Kearney. I was able to relieve the imaging findings of both the CT angiogram Of the head and neck. Of which the angiogram of the head suggests an enhancing structure in the right temporal lobe. Mass versus venous structure. Dr. Kearney is requesting to interview the patient on the monitor to discuss if he would potentially be a TNK candidate 1914: Spoke with Dr. Kearney the telestroke neurologist. He feels the patient is outside the tenecteplase window. However he would make the recommendation for admission of the patient to the hospital for an MRA within the next 48 hours. He would like an echocardiogram completed. He would allow permissive hypertension with a goal blood pressure under 200. He does recommend loading the patient with 325 of aspirin as well as high-dose atorvastatin which I have ordered. The patient will be admitted to our hospital for further evaluation and treatment of what appears to be cerebellar like stroke. I have discussed the plan and findings with the patient and his and they are in agreement. 2134: I [facility] who graciously agrees to bring the patient in for further evaluation and management of his cerebrovascular accident Departure - Departure Disposition: 66 [facility] DC/Xfer Clinical Impression: Ataxia, Temporal lobe lesion CVA (cerebral vascular accident) Qualifiers: CVA mechanism: unspecified Qualified Code(s): I63.9 - Cerebral infarction, unspecified Condition: Serious NIHSS - Time Time: 18:30 - Level of Consciousness Level of consciousness: (0) Alert, Keenly responsive LOC Questions: (0) Answers both Q's correct LOC Commands: (0) Performs both correctly - Gaze Best Gaze: (0) Normal - Visual Visual: (0) No loss - Facial Palsy Facial Palsy: (0) Normal, symmetrical movement - Motor Arms (both separate) Motor Arm (right): (0) No drift Motor Arm (left): (0) No drift - Motor Legs (both separate) Motor Leg (right): (0) No drift Motor Leg (left): (0) No drift - Limb Ataxia Limb Ataxia: (2) Present in 2 limbs - Sensory Sensory: (0) Normal - Best Language Best Language: (0) No aphasia - Dysarthria Dysarthria: (0) Normal - Extinction and Inattention (formally neg Extinction and inattention: (0) No abnormality - Total Score/Results Total Score/Result: 2
--- NOTE | 2022-12-18 18:49 | XRAY Report ---
PROCEDURE: Chest 1 View X-Ray INDICATIONS: Chest Pain TECHNIQUE: One view of the chest was acquired. COMPARISON: 03/27/2020 FINDINGS: Surgical changes and devices: None. Lungs and pleura: Stable elevation of the right hemidiaphragm. No pleural effusions or pneumothorax. Lungs are clear. Mediastinum: Mediastinal contours appear normal. Heart size is normal. Bones and chest wall: No suspicious bony lesions. Stable calcification adjacent to the left coracoid process which may represent sequela of remote trauma of the coracoclavicular ligament. Overlying sof t tissues appear unremarkable. IMPRESSION: No evidence of an acute cardiopulmonary abnormality. Reviewed by: Trip Trejo DO on 12/18/2022 5:47 PM [facility]IM[facility] Approved by: Trip Trejo DO on 12/18/2022 5:47 PM NAIMA Station ID: [id number]
[2022-12-18 18:59] LABS: BASOPHILS % (AUTO) 0.6 %; EOSINOPHILS % (AUTO) 0.6 %; HCT - HEMATOCRIT 43.6 % (42.0-52.0); HGB - HEMOGLOBIN 14.8 g/dL (14.0-18.0); LYMPHOCYTES # (AUTO) 0.7 10^3/uL (1.5-3.5); MEAN CORPUSCULAR HEMOGLOBIN 31.8 pg (27.0-31.0); MEAN CORPUSCULAR HGB CONC 33.9 g/dL (32.0-36.0); MEAN CORPUSCULAR VOLUME 93.8 fL (80.0-94.0); MEAN PLATELET VOLUME 9.1 fL (7.4-11.4); MONOCYTES # (AUTO) 0.8 10^3/uL (0.0-1.0); MONOCYTES % (AUTO) 11.3 %; NEUTROPHILS # (AUTO) 5.1 10^3/uL (1.5-6.6); NEUTROPHILS % (AUTO) 76.2 %; PLT - PLATELET COUNT 194 10^3/uL (130-450); RED BLOOD COUNT 4.65 10^6/uL (4.70-6.10); RED CELL DISTRIBUTION WIDTH 12.5 % (12.0-15.0); WHITE BLOOD COUNT 6.6 x10^3/uL (4.8-10.8)
[2022-12-18 19:06] LABS: PT - PROTHROMBIN TIME 11.5 secs (9.9-12.6)
[2022-12-18 19:14] LABS: ALBUMIN/GLOBULIN RATIO 1.3 (1.0-2.2); BILIRUBIN,TOTAL 0.7 mg/dL (0.2-1.0); CALCIUM 8.6 mg/dL (8.5-10.3); CREATININE 1.2 mg/dL (0.6-1.2); POTASSIUM 3.8 mmol/L (3.5-5.0); TOTAL PROTEIN 7.1 g/dL (6.7-8.2)
--- NOTE | 2022-12-18 19:53 | CT Report ---
PROCEDURE: ANGIO NECK W INDICATIONS: dizzy; ataxia CONTRAST: 100 ML OMNI 300 TECHNIQUE: After the administration of intravenous contrast, 1.5 mm axial sections acquired from the aortic arch to the [place] of [place]. Coronal 3-D maximum intensity projection (MIP) and/or volume rendering ref ormats were then performed. For radiation dose reduction, the following was used: automated exposur e control, adjustment of mA and/or kV according to patient size. COMPARISON: CTA head the same date. FINDINGS: Image quality: Excellent. Carotid system: The great vessels demonstrate a conventional anatomy as they arise from the aortic a rch. The origins of the common carotid arteries appear patent. The common carotid arteries demonstr ate normal calibers and courses. The bifurcation regions appear normal bilaterally. There is mild bi lateral proximal internal carotid artery disease without significant stenosis, minimal stenoses prese nt. Posterior circulation: The origins of the vertebral arteries appear patent. The more superior porti ons of the vertebral arteries demonstrate normal course and caliber. They join to form a normal appe aring basilar artery. Soft tissues: Visualized neck soft tissues demonstrate no suspicious abnormalities. The thyroid is normal in size and there are no incidental findings. Bones: No suspicious bony lesions. Visualized cervical spine appears normally aligned. IMPRESSION: Very mild bilateral proximal internal carotid artery stenotic disease. Please refer to a separate report for CTA head findings. The estimate of stenosis included in the report of the imaging study was calculated using the NASCET method CLINICAL RECOMMENDATION STATEMENTS: In patients <35 years with an ITN detected on CT, MRI, or extrathyroidal ultrasound, the Committee re commends further evaluation with dedicated thyroid ultrasound if the nodule is "e1 cm and has no susp icious imaging features, and if the patient has normal life expectancy. In patients "e35 years with an ITN detected on CT, MRI, or extrathyroidal ultrasound, the Committee r ecommends further evaluation with dedicated thyroid ultrasound if the nodule is "e1.5 cm and has no s uspicious imaging features, and if the patient has normal life expectancy. (ACR, 2014) Reviewed by: Jensen Reyes MD on 12/18/2022 7:52 PM PDT Approved by: Jensen Reyes MD on 12/18/2022 7:52 PM PDT Station ID: [id number]
--- NOTE | 2022-12-18 20:03 | CT Report ---
PROCEDURE: ANGIO HEAD W/WO INDICATIONS: dizzy; ataxia CONTRAST: 100 ML OMNI 300 TECHNIQUE: Precontrast 4.5 mm thick angled axial sections acquired from the foramen magnum to the vertex. Afte r the administration of intravenous contrast, 1 mm thick sections acquired through the [place] of [place] is. Postcontrast 4.5 mm thick sections then re-acquired from the foramen magnum to the vertex. 3-di mensional fyhrymn-vbtwbgpge-gkiarifxfj (MIP) and/or volume rendering reformats were acquired of the c entral intracranial vasculature. For radiation dose reduction, the following was used: automated ex posure control, adjustment of mA and/or kV according to patient size. COMPARISON: CTA neck from the same date at the same time FINDINGS: Image quality: Excellent. Anterior circulation: Intracranial internal carotid arteries are normal in size and flow. The flow within the paired anterior cerebral arteries is normal and symmetric. The flow within the middle cer ebral arteries is normal and symmetric. The anterior communicating artery is seen. No aneurysms are seen. Posterior circulation: Visualized portions of the vertebral arteries demonstrate normal caliber, and join to form a normal appearing basilar artery. Flow within the posterior cerebral arteries is norm al and symmetric. No aneurysms are seen. CSF spaces: Ventricles are normal in size and shape. Basal cisterns are patent. No extra-axial flu id collections. Brain: No midline shift. No intracranial bleeds. At the medial aspect of the right temporal lobe, th ere is an enhancing structure measuring 8 mm. It likely represents a vascular structure and not an en hancing mass. It may represent a venous structure. However, a mass is not completely excluded. Dent-w marlon matter interface appears intact. Skull and face: Calvarium and facial bones appear intact, without suspicious lesions. Sinuses: Visualized sinuses and mastoids are clear. IMPRESSION: 1. There are no findings which are supportive of a diagnosis of vertebrobasilar insufficiency. 2. There is an enhancing structure at the medial aspect of the right temporal lobe measuring 8 mm. An enhancing venous structure is favored. However, cannot exclude a enhancing mass. 3. Otherwise unremarkable appearance of the brain for patient age. No evidence of acute stroke or hem orrhage. Comment: Recommend nonemergent brain MRI with and without contrast. Reviewed by: Jensen Reyes MD on 12/18/2022 8:02 PM PDT Approved by: Jensen Reyes MD on 12/18/2022 8:02 PM PDT Station ID: [id number]
[2022-12-18] MEDS ORDERED: ATORVASTATIN 40 MG TABLET PO STA (21:15)
[2022-12-18] MEDS ORDERED: ASPIRIN CHEW 81 MG TABLET PO STA (21:15)
[2022-12-18] MEDS ORDERED: iohexoL-300 100 ML VIAL IVP ONE (21:27)
[2022-12-18] MEDS ORDERED: ONDANSETRON 4 MG/2 ML VIAL IVP PRN (21:36)
[2022-12-18] MEDS ORDERED: SODIUM CHLORIDE FLUSH 0.9% 10 ML SYRINGE IVP PRN (21:36)
[2022-12-18 22:03] LABS: CHOL/HDL RATIO 2.8 (<5.0); CHOLESTEROL 139 mg/dL; HDL CHOLESTEROL 50 mg/dL; LDL CHOLESTEROL,CALCULATED 70 mg/dL; LDL/HDL RATIO 1.4 (<3.6); TRIGLYCERIDES 94 mg/dL; VLDL CHOLESTEROL 19 mg/dL
--- NOTE | 2022-12-18 22:05 | HISTORY & PHYSICAL EXAMINATION ---
Chief Complaint - Chief Complaint Chief Complaint: Dizziness, weakness History of Present Illness - History of Present Illness HPI Comment/Other: 72-year-old male with PMH HTN, HLP, was brought to the emergency department via private vehicle for evaluation of feeling lightheaded, dizzy and ataxic. Reportedly he was in the kitchen helping prepare dinner when he began to feel lightheaded and dizzy. States he felt off balance. He felt like he was in a fog in his brain. He felt things that were slowing down and then suddenly speeding up. He thought he might do well to sit down. His reports that he was unable to walk without holding onto a wall. She reports that he seemed to make nonsensical words. He checked his blood pressure at home and it was 150/70. onset of symptoms 1600 Pt is alert and awake at the time of my examination. able to talk and move all extremities Denies SHIELDS, chest pain, SOB, Nausea, vomiting, dioarrhea, constipation or symptoms On presentaion, pt was afebrile Labs showed normal WBC, CTA head showed no acute intracranial abnormalities CTA neck shwoed mild carotid stenosis As per ER physician, pt was out of window for TPA and she also consulted with neurologist purchasing contracting clerk , Dr Kearney who rec MRI brain Pt is admitted due to for further evaluation for TIA/CVA History - Past Medical History Cardiovascular: reports: High cholesterol Respiratory: reports: None, Sleep apnea Endocrine/Autoimmune: reports: None GI: reports: Colon polyps : reports: None HEENT: reports: None Psych: reports: None Musculoskeletal: reports: None Derm: reports: None MRSA Hx?: No - Past Surgical History General: reports: Colonoscopy Ortho: reports: Other Meds/Allgy - Home Medications Home Medications: Ambulatory Orders Medication Instructions Recorded Confirmed Cetirizine HCl [Aller-Luis] 40 mg PO 12/26/13 12/26/13 Glucosamine Sulfate Dipot Chlr 1,000 mg PO 12/26/13 12/26/13 [Glucosamine] Multivitamin [Multi-Vitamin Daily] 1 each PO 12/26/13 12/26/13 [place]-3/Dha/Epa/Fish Oil [Fish Oil] 500 mg PO 12/26/13 12/26/13 Simvastatin 40 mg PO 12/26/13 12/26/13 - Allergies Allergies/Adverse Reactions: Allergies Allergy/AdvReac Type Severity Reaction Status Date / Time No Known Drug Allergies Allergy Verified 12/18/22 18:23 Review of Systems - Other Findings Other Findings: 10 points systems were reviewed and were negative except mentioned in HPI Exam - Vital Signs Vital Signs: Vital Signs x48h Temp Pulse Pulse Pulse Pulse Resp BP 12/18/22 21:30 82 19 127/79 12/18/22 21:21 87 18 140/90 H 12/18/22 20:33 80 20 139/87 H 12/18/22 20:00 82 16 140/78 H 12/18/22 19:46 90 82 88 12/18/22 19:02 88 16 154/89 H 12/18/22 18:26 36.5 C 88 16 147/70 H 12/18/22 18:23 36.5 C 88 16 147/70 H BP BP BP Pulse Ox 12/18/22 21:30 96 12/18/22 21:21 97 12/18/22 20:33 96 12/18/22 20:00 96 12/18/22 19:46 150/80 H 138/82 H 145/77 H 12/18/22 19:02 96 12/18/22 18:26 96 12/18/22 18:23 96 - Physical Exam General Appearance: positive: No acute distress, Alert Eyes Bilateral: positive: Normal inspection ENT: positive: ENT inspection nml Neck: positive: Nml inspection Respiratory: positive: Chest non-tender, Breath sounds nml Cardiovascular: positive: Regular rate & rhythm Abdomen: positive: Non-tender, Nml bowel sounds Skin: positive: Color nml Extremities: positive: No pedal edema Neurologic/Psychiatric: positive: Oriented x3, Motor nml, Sensation nml Conclusion/Plan - Lab Results Fish Bones: 12/18/22 18:42 12/18/22 18:42 - Other Other Results/Comments: A: TIA/ CVA Dizziness HTN HLP Plan: Admit in med surg with tele Cardiac monitoring Echo MRI brain with and without contrast Start aspirin 325 mg po qd Lipitor 80 mg po qd lipid panel NPO ST/PT/OT Allow permissive BP as per neuro Hold HCTZ Supportive care DVT prophylaxic: SCD Full code Pt is admitted as in-patient as more than 2 midnight stay is expected
[2022-12-19] MEDS: SODIUM CHLORIDE FLUSH 0.9% 10 ML SYRINGE IVP SCH ×3 (00:45→20:19)
[2022-12-19] MEDS ORDERED: ASPIRIN 325 MG TABLET PO SCH (09:00)
[2022-12-19] MEDS ORDERED: ATORVASTATIN 40 MG TABLET PO SCH (09:00)
[2022-12-19] MEDS ORDERED: ASPIRIN EC 81 MG TABLET PO SCH (09:04)
--- NOTE | 2022-12-19 09:13 | PROVIDER PROGRESS NOTE ---
Assessment/Plan - Problem List (1) Stroke-like symptoms Assessment/Plan: Patient developed sudden dizziness and ataxia. In the ER his ambulation was abnormal he was listing to the right but a supine exam was normal for motor and sensory exam. Telestroke doctor said he was out of the window to get tenectep lase treatment. Patient has been started on aspirin daily and received Lipitor 80 mg. He was already on simvastatin 40 mg at home which is a maximum dose. Labs were [id number]. His lipid panel has returned and is excellent with HDL 50 and LDL of 70. Plan: We will order neurochecks every 4 hours, swallow screen by RN Continue to monitor on telemetry for A-fib We will order a brain MRA, as was written as recommended in the ED provider note, and also await the brain MRI Await PT and OT evaluations (today is Tuesday and we have no PT or OT on Sundays) Await complete Echo with bubble study (today is Tuesday and we have no wind commissioning technician here until Tuesday) We will make the daily aspirin baby aspirin, unless he was already on baby aspirin then we will add Plavix to his aspirin. Await medication list to be reconciled by pharmacy today We will move the daily Lipitor order to every evening, not daily in am. Since the ED provider H&P said that both external ear canals are 100% occluded, and this could be adding to his ataxia, will order ear irrigation>> The RN got supplies but we have no otoscope available on [facility] and [facility] is locked on Sundays. The irrigation will have to be done tomorrow (Tuesday), possibly in the ED or in [facility]. (2) Temporal lobe lesion Assessment/Plan: This was seen on CTA of the head. Unsure if it is a mass or a vascular lesion like an AVM Plan: We will order an MRA of the brain as was written as advised in the note of the ED provider (today is Tuesday and we have no MRI available on Sundays). (3) Gross hematuria Assessment/Plan: Overnight his RN noticed a speck of red urine after he wiped his penis. During the day shift, his RN noticed a spot of blood on his underwear anteriorly in front of the penis. When I asked him about both of these episodes, he remembered he also had severe dysuria for a few seconds when they happened when he was urinating. He thinks he passed a stone. Plan: We will obtain a U/A, If this is normal we will strain all urine through, look for a stone (4) HTN Plan: We are allowing permissive hypertension today, empirically. We will resume his blood pressure meds when appropriate and when reconciled by pharmacy (5) Hyperlipidemia Plan: He takes simvastatin at home. We will continue with the high-dose Lipitor currently (6) GERD Plan: We will restart his GERD meds when his med list is reconciled by pharmacy - Current Meds Current Meds: Current Medications Generic Name Dose Route Start Last Admin Trade Name Freq PRN Reason Stop Dose Admin Sodium Chloride 10 ml 12/19/22 01:00 12/19/22 08:53 Sodium Chloride Flush 0.9% 10 Ml Syringe IVP 10 ml 0100,0900,1700 [facility] Administration - Lab Result Fish Bone Diagrams: 12/18/22 18:42 12/19/22 09:15 - Additional Planning My Orders: My Active Orders 12/19/22 09:03 Neuro Check [RC] Q4HR Telemetry- [RC] Q4HR 12/19/22 09:04 Aspirin EC [Ecotrin] 81 mg PO DAILY 12/19/22 09:05 Swallow Screen - Nursing [RC] ONCE 12/19/22 09:06 BMP - BASIC METABOLIC PANEL [CHEM] Routine 12/19/22 09:07 Brain Angio W/WO [MRI] Stat MAGNESIUM [CHEM] Routine 12/19/22 09:15 Multivitamin [Multi-Vitamin Daily] 1 each PO DAILY 12/19/22 10:00 Cetirizine [ZyrTEC] 10 mg PO DAILY 12/19/22 21:00 Atorvastatin [Lipitor] 80 mg PO QPM 12/20/22 05:00 BMP - BASIC METABOLIC PANEL [CHEM] DAILYLAB CBC - COMP BLD CT W/AUTO DIFF [HEME] DAILYLAB 12/21/22 07:00 Echo Complete w/Bubble Study [ECHO] Stat Subjective - Subjective Patient Reports: Feeling Better (No dizziness, feels that his balance is okay and able to walk to bathroom), Other (Had 2 episodes of severe dysuria associated with hematuria when he was urinating) Nursing Reports: Other (Nurse reports he has no problem walking, does not list, able to go to the bathroom) Objective Vital Signs: Vital Signs - 24 hr 12/18/22 12/18/22 12/18/22 18:23 18:26 19:02 Temperature 36.5 C 36.5 C Heart Rate 88 88 88 Heart Rate [ Brachial] Heart Rate [ Monitoring electrodes] Heart Rate [ Sitting] Heart Rate [ Standing] Heart Rate [ Supine] Respiratory 16 16 16 Rate Blood Pressure 147/70 H 147/70 H 154/89 H Blood Pressure [Right Brachial artery] Blood Pressure [Sitting] Blood Pressure [Standing] Blood Pressure [Supine] O2 Saturation 96 96 96 12/18/22 12/18/22 12/18/22 19:46 20:00 20:33 Temperature Heart Rate 82 80 Heart Rate [ Brachial] Heart Rate [ Monitoring electrodes] Heart Rate [ 90 Sitting] Heart Rate [ 82 Standing] Heart Rate [ 88 Supine] Respiratory 16 20 Rate Blood Pressure 140/78 H 139/87 H Blood Pressure [Right Brachial artery] Blood Pressure 150/80 H [Sitting] Blood Pressure 138/82 H [Standing] Blood Pressure 145/77 H [Supine] O2 Saturation 96 96 12/18/22 12/18/22 12/18/22 21:21 21:30 22:16 Temperature 36.6 C Heart Rate 87 82 Heart Rate [ Brachial] Heart Rate [ 77 Monitoring electrodes] Heart Rate [ Sitting] Heart Rate [ Standing] Heart Rate [ Supine] Respiratory 18 19 20 Rate Blood Pressure 140/90 H 127/79 Blood Pressure 139/83 H [Right Brachial artery] Blood Pressure [Sitting] Blood Pressure [Standing] Blood Pressure [Supine] O2 Saturation 97 96 96 12/19/22 12/19/22 12/19/22 00:50 04:39 08:00 Temperature 36.4 C L 36.2 C L 36.4 C L Heart Rate Heart Rate [ 72 68 67 Brachial] Heart Rate [ Monitoring electrodes] Heart Rate [ Sitting] Heart Rate [ Standing] Heart Rate [ Supine] Respiratory 18 18 18 Rate Blood Pressure Blood Pressure 118/71 119/69 124/83 H [Right Brachial artery] Blood Pressure [Sitting] Blood Pressure [Standing] Blood Pressure [Supine] O2 Saturation 95 95 94 Oxygen O2 Source Room air I&O (Last 24 Hrs): Intake and Output Totals x24h 12/17/22 12/18/22 12/19/22 23:59 23:59 23:59 Intake Total 1000 Output Total 1775 Balance 1000 -177 General: Alert, Oriented x3, Other (Obese male appears younger than age) HEENT: EOMI, Mucous membr. moist/pink Neck: Supple, No JVD (No carotid bruits) Neuro: Alert, Non Focal (FNF normal, [id number] normal) Cardiovascular: Regular rate, No murmurs (Very distant heart sounds due to obesity) Respiratory: No respiratory distress, Breath sounds nml Abdomen: Normal bowel sounds, Soft, Other (Obese) Genitourinary: Normal Inspection Extremities: No clubbing, No edema, No tenderness/swelling - Results Results: Laboratory Results WBC 6.6 x10^3/uL (4.8-10.8) 12/18/22 18:42 RBC 4.65 10^6/uL (4.70-6.10) L 12/18/22 18:42 Hgb 14.8 g/dL (14.0-18.0) 12/18/22 18:42 Hct 43.6 % (42.0-52.0) 12/18/22 18:42 MCV 93.8 fL (80.0-94.0) 12/18/22 18:42 MCH 31.8 pg (27.0-31.0) H 12/18/22 18:42 MCHC 33.9 g/dL (32.0-36.0) 12/18/22 18:42 RDW 12.5 % (12.0-15.0) 12/18/22 18:42 Plt Count 194 10^3/uL (130-450) 12/18/22 18:42 MPV 9.1 fL (7.4-11.4) 12/18/22 18:42 Neut # (Auto) 5.1 10^3/uL (1.5-6.6) 12/18/22 18:42 Lymph # (Auto) 0.7 10^3/uL (1.5-3.5) L 12/18/22 18:42 [place] # (Auto) 0.8 10^3/uL (0.0-1.0) 12/18/22 18:42 Eos # (Auto) 0.0 10^3/uL (0.0-0.7) 12/18/22 18:42 Baso # (Auto) 0.0 10^3/uL (0.0-0.1) 12/18/22 18:42 Absolute Nucleated RBC 0.00 x10^3/uL 12/18/22 18:42 Nucleated RBC % 0.0 /100WBC 12/18/22 18:42 PT 11.5 secs (9.9-12.6) 12/18/22 18:56 INR 1.0 (0.8-1.2) 12/18/22 18:56 Sodium 133 mmol/L (135-145) L 12/18/22 18:42 Potassium 3.8 mmol/L (3.5-5.0) 12/18/22 18:42 Chloride 100 mmol/L (101-111) L 12/18/22 18:42 Carbon Dioxide 25 mmol/L (21-32) 12/18/22 18:42 Anion Gap 8.0 (6-13) 12/18/22 18:42 BUN 22 mg/dL (6-20) H 12/18/22 18:42 Creatinine 1.2 mg/dL (0.6-1.2) 12/18/22 18:42 Estimated GFR (MDRD) 60 (>89) L 12/18/22 18:42 Glucose 151 mg/dL (70-100) H 12/18/22 18:42 Calcium 8.6 mg/dL (8.5-10.3) 12/18/22 18:42 Total Bilirubin 0.7 mg/dL (0.2-1.0) 12/18/22 18:42 AST 30 IU/L (10-42) 12/18/22 18:42 ALT 31 IU/L (10-60) 12/18/22 18:42 Alkaline Phosphatase 49 IU/L (42-121) 12/18/22 18:42 Troponin I High Sens 4.0 ng/L (2.3-19.7) 12/18/22 18:42 Total Protein 7.1 g/dL (6.7-8.2) 12/18/22 18:42 Albumin 4.0 g/dL (3.2-5.5) 12/18/22 18:42 Globulin 3.1 g/dL (2.1-4.2) 12/18/22 18:42 Albumin/Globulin Ratio 1.3 (1.0-2.2) 12/18/22 18:42 Triglycerides 94 mg/dL (-149) 12/18/22 18:42 Cholesterol 139 mg/dL (-199) 12/18/22 18:42 LDL Cholesterol, Calc 70 mg/dL (-129) 12/18/22 18:42 VLDL Cholesterol 19 mg/dL 12/18/22 18:42 HDL Cholesterol 50 mg/dL (60-) L 12/18/22 18:42 LDL/HDL Ratio 1.4 (<3.6) 12/18/22 18:42 Cholesterol/HDL Ratio 2.8 (<5.0) 12/18/22 18:42 Lipase 37 U/L (22-51) 12/18/22 18:42 - Procedures Procedures: Procedures COLONOSCOPY (12/27/13)
--- NOTE | 2022-12-19 09:13 | PHARMACY PROGRESS NOTE ---
- Best Possible Medication History Admit Date and Time: 12/18/222135 Processed by: Pharmacy Medication History completed: Yes Patient Interview: Completed Secondary Source(s): Pharmacy records As the person ultimately responsible for medication therapy, providers are able to order a medication from an existing home medication list in [facility] via the "Reconcile Routine" prior to Confirmation of that medication by instructional support specialist. Such practice is discouraged except when the physician, in their clinical judgment, deems that a medical need exists for a medication without regard to previous use.
[2022-12-19 09:30] LABS: CALCIUM 8.5 mg/dL (8.5-10.3); CREATININE 1.1 mg/dL (0.6-1.2); POTASSIUM 3.8 mmol/L (3.5-5.0)
[2022-12-19] MEDS: CETIRIZINE 10 MG TABLET PO SCH (10:46)
[2022-12-19] MEDS: MULTIVITAMIN W/MINERALS TABLET PO SCH (10:46)
[2022-12-19 14:45] LABS: BILIRUBIN,URINE NEGATIVE (NEGATIVE); GLUCOSE, URINE (UA) NEGATIVE (NEGATIVE); KETONES,URINE (UA) NEGATIVE (NEGATIVE); LEUKOCYTE ESTERASE, URINE NEGATIVE (NEGATIVE); NITRITE,URINE NEGATIVE (NEGATIVE); OCCULT BLOOD,URINE NEGATIVE (NEGATIVE); PROTEIN,URINE NEGATIVE (NEGATIVE); UROBILINOGEN,URINE 0.2 (NORMAL) E.U./dL (NORMAL)
[2022-12-19 14:46] LABS: CLARITY,URINE CLEAR (CLEAR)
[2022-12-19 15:04] LABS: RBC,URINE None Seen /HPF (0-5); WBC,URINE 0-3 /HPF (0-3)
[2022-12-19 15:05] LABS: BACTERIA,URINE None Seen /HPF (None Seen); SQUAMOUS EPITHELIAL CELL,UR NONE SEEN (<= Few)
[2022-12-19] MEDS ORDERED: BENZOCAINE/MENTHOL LOZENGE MM PRN (19:47)
[2022-12-20] MEDS: SODIUM CHLORIDE FLUSH 0.9% 10 ML SYRINGE IVP SCH ×3 (04:13→21:16)
[2022-12-20 05:04] LABS: EOSINOPHILS # (AUTO) 0.2 10^3/uL (0.0-0.7); EOSINOPHILS % (AUTO) 3.8 %; HCT - HEMATOCRIT 43.5 % (42.0-52.0); HGB - HEMOGLOBIN 14.3 g/dL (14.0-18.0); LYMPHOCYTES # (AUTO) 0.7 10^3/uL (1.5-3.5); LYMPHOCYTES % (AUTO) 16.8 %; MEAN CORPUSCULAR HEMOGLOBIN 31.3 pg (27.0-31.0); MEAN CORPUSCULAR HGB CONC 32.9 g/dL (32.0-36.0); MEAN CORPUSCULAR VOLUME 95.2 fL (80.0-94.0); MONOCYTES # (AUTO) 0.6 10^3/uL (0.0-1.0); MONOCYTES % (AUTO) 15.5 %; NEUTROPHILS # (AUTO) 2.5 10^3/uL (1.5-6.6); NEUTROPHILS % (AUTO) 62.4 %; PLT - PLATELET COUNT 177 10^3/uL (130-450); RED BLOOD COUNT 4.57 10^6/uL (4.70-6.10); RED CELL DISTRIBUTION WIDTH 12.8 % (12.0-15.0); WHITE BLOOD COUNT 3.9 x10^3/uL (4.8-10.8)
[2022-12-20 05:20] LABS: CALCIUM 8.6 mg/dL (8.5-10.3); POTASSIUM 4.1 mmol/L (3.5-5.0)
[2022-12-20] MEDS ORDERED: GADOBUTROL 15 MMOL/15 ML VIAL ONE (07:35)
--- NOTE | 2022-12-20 08:10 | PROVIDER PROGRESS NOTE ---
Assessment/Plan - Problem List (1) Stroke-like symptoms Assessment/Plan: Patient developed sudden dizziness and ataxia at home. He was unclear if he had possibly had exposure to a high dose of THC, because the son keeps THC at the patient's house. He reported not only abnormal balance, but also racing thou ghts, therefore he thought maybe there was drug exposure. In the ER his ambulation was abnormal, he was listing to one side, but a supine exam was normal for motor and sensory exam. His head CT showed Telestroke doctor said he was out of the window to get TPA treatment. Patient was started on aspirin daily and received Lipitor 80 mg. He was already on simvastatin 40 mg at home which is a maximum dose. Labs were reviewed and he has a good LDL of 70 and HDL of 50, on his home statin med. By the morning of 12/19, the day after admission, patient states that all his symptoms resolved. He was able to walk to the bathroom and has no listing or sensation of racing thoughts His brain MRA and brain MRI were done today (since we had no MR scanning available yester, Tuesday). The brain MRA showed no occulsions and no evidence of AVM. The MRI showed no stroke and the abnormal area on yesterday's CT is a normal choroid plexus This may have been a TIA therefore. Plan: Continue to monitor on telemetry for A-fib PT and OT evaluations to be done today (today is Tue and we have no PT or OT on Sun, his day of admission) Await complete Echo with bubble study (today is Tue and we have no safety relief valve technician here until Tuesday) Cont daily baby aspirin lifelong Continue with statin every evening All the above was discussed with the patient, and at bedside Since the ED provider H&P said that both external ear canals are 100% occluded, and this could have added to his ataxia, I ordered bilat ear irrigation>> The RN reported we have no otoscope available on [employer]. The irrigation will have to be done today (Tuesday), possibly in the ED or in [facility]. Today the med list was completed and he takes Losartan/HCTZ. Will continue with Losartan but not continue with HCTZ, because it could be adding to his dizziness. also, orthostatic vital signs to be checked. (2) Temporal lobe lesion Assessment/Plan: This was seen on CTA of the head. Unsure if it is a mass or a vascular lesion like an AVM MRA of the brain was done today and did not show an AVM, no vascular abnormality was reported. His brain MRI showed no stroke and the abnormal area on yesterday's CT is a normal choroid plexus. The above was discussed with pt and at beside (3) Gross hematuria Assessment/Plan: Since 12/18 his RN noticed 2 episodes of a spot of blood on his underwear anteriorly. When I asked him about both of these episodes, he remembered he also had severe dysuria for a few seconds when he was urinating. He thinks he passed a stone. A U/A was done 12/19, I reviewed the results, which were normal. Plan: Straining all urine is now ordered, look for a stone A Urology outpt eval may be needed after discharge (4) Mobitz 1 second-degree heart block Assessment/Plan: The patient's admission EKG showed first-degree block. Overnight this last night he had at least 5 episodes seen by nursing, reported to me,of Mobitz 1 second-degree heart block. I reviewed the telemetry strips and concur. Plan: Await a complete Echocardiogram Avoid heart rate slowing medications Remain on telemetry I told the patient this type of problem is seen in Sleep apnea pts and he then revealed he has sleepapnea and is on nasal pillow CPAP device whichhe did not bring to use here. (5) Sleep apnea Assessment/Plan: I was discussing with the patient and today, that bracdycardia and Mobitz 1 block are often seen in Sleep apnea pts and he then revealed (for the first time), that he has sleep apnea and is on nasal pillow CPAP device which he did not bring to use here. Plan: I will order CPAP from home to use here, however the does not want to drive in the dark and the [place] min away (6) HTN Assessment/Plan: We were allowing permissive hypertension empirically. Plan: We will resume his blood pressure meds when appropriate. Today the med list was completed and he takes losartan/HCTZ. Will continue with losartan but not continue with HCTZ because it could be adding to his dizziness. Orthostatic vital signs to be checked (7) Hyperlipidemia Assessment/Plan: Plan: He takes simvastatin at home. We will continue with the high-dose Lipitor currently (8) GERD Assessment/Plan: Plan: We will restart his Famotidine when his med list is reconciled by pharmacy - Current Meds Current Meds: Current Medications Generic Name Dose Route Start Last Admin Trade Name Maurice PRN Reason Stop Dose Admin Cetirizine HCl 10 mg 12/19/22 10:00 12/19/22 10:46 Cetirizine 10 Mg Tablet PO 10 mg DAILY RONNELL Administration Multivitamins/Minerals 1 tab 12/19/22 09:30 12/19/22 10:46 Multivitamin W/Minerals Tablet PO 1 tab DAILYWM RONNLEL Administration Sodium Chloride 10 ml 12/19/22 01:00 12/20/22 04:13 Sodium Chloride Flush 0.9% 10 Ml Syringe IVP 10 ml 0100,0900,1700 RONNELL Administration Throat Lozenges 1 lozenge 12/19/22 19:47 12/19/22 20:18 Benzocaine/Menthol Lozenge MM 1 lozenge Q2HR PRN Administration Throat pain - Lab Result Fish Bone Diagrams: 12/20/22 04:45 12/20/22 04:45 - Additional Planning My Orders: My Active Orders 12/19/22 09:03 Neuro Check [RC] Q4HR Telemetry- [RC] Q4HR 12/19/22 09:23 ED Ear Irrigation ONCE 12/19/22 09:30 Multivitamin W/Minerals [Theragran M] 1 tab PO DAILYWM 12/19/22 10:00 Cetirizine [ZyrTEC] 10 mg PO DAILY 12/19/22 16:52 Strain All Urine [RC] QSHIFT 12/19/22 19:47 Benzocaine/Menthol [Cepacol] 1 lozenge MM Q2HR PRN 12/20/22 07:48 Orthostatic [Vital Signs - Orthostatic] [RC] QSHIFT 12/20/22 09:00 Aspirin EC [Ecotrin] 81 mg PO DAILY 12/20/22 11:00 Brain Angio W/WO [MRI] Stat 12/20/22 21:00 Atorvastatin [Lipitor] 80 mg PO QPM 12/21/22 07:00 Echo Complete w/Bubble Study [ECHO] Stat Subjective - Subjective Patient Reports: Feeling Better, Resting Comfortably Objective Vital Signs: Vital Signs - 24 hr 12/19/22 12/19/2223 13:45 16:00 20:41 Temperature 36.7 C 36.5 C 36.4 C L Heart Rate [ 72 81 72 Brachial] Respiratory 18 18 16 Rate Blood Pressure 118/68 126/77 125/77 [Right Brachial artery] O2 Saturation 96 94 96 12/20/22 12/20/22 12/20/22 00:03 03:50 08:00 Temperature 36.4 C L 36.4 C L 36.4 C L Heart Rate [ 67 65 62 Brachial] Respiratory 16 16 18 Rate Blood Pressure 141/80 H 115/70 128/87 H [Right Brachial artery] O2 Saturation 96 96 95 Oxygen O2 Source Room air I&O (Last 24 Hrs): Intake and Output Totals x24h 12/18/22 12/19/22 12/20/22 23:59 23:59 23:59 Intake Total 1000 2340 Output Total 5400 1100 Balance 1000 -3060 -1100 General: Alert, Oriented x3, No acute distress HEENT: Mucous membr. moist/pink, Other (Both ear canals occluded with wax, viewed with otoscope) Neck: Supple Neuro: Alert, Non Focal, Other ([place]) Cardiovascular: Regular rate, No murmurs Respiratory: No respiratory distress Abdomen: Normal bowel sounds, Soft, Other (Obese) Extremities: No clubbing, No edema, No tenderness/swelling - Results Results: Laboratory Results WBC 3.9 x10^3/uL (4.8-10.8) L 12/20/22 04:45 RBC 4.57 10^6/uL (4.70-6.10) L 12/20/22 04:45 Hgb 14.3 g/dL (14.0-18.0) 12/20/22 04:45 Hct 43.5 % (42.0-52.0) 12/20/22 04:45 MCV 95.2 fL (80.0-94.0) H 12/20/22 04:45 MCH 31.3 pg (27.0-31.0) H 12/20/22 04:45 MCHC 32.9 g/dL (32.0-36.0) 12/20/22 04:45 RDW 12.8 % (12.0-15.0) 12/20/22 04:45 Plt Count 177 10^3/uL (130-450) 12/20/22 04:45 MPV 9.0 fL (7.4-11.4) 12/20/22 04:45 Neut # (Auto) 2.5 10^3/uL (1.5-6.6) 12/20/22 04:45 Lymph # (Auto) 0.7 10^3/uL (1.5-3.5) L 12/20/22 04:45 [place] # (Auto) 0.6 10^3/uL (0.0-1.0) 12/20/22 04:45 Eos # (Auto) 0.2 10^3/uL (0.0-0.7) 12/20/22 04:45 Baso # (Auto) 0.0 10^3/uL (0.0-0.1) 12/20/22 04:45 Absolute Nucleated RBC 0.00 x10^3/uL 12/20/22 04:45 Nucleated RBC % 0.0 /100WBC 12/20/22 04:45 PT 11.5 secs (9.9-12.6) 12/18/22 18:56 INR 1.0 (0.8-1.2) 12/18/22 18:56 Sodium 139 mmol/L (135-145) 12/20/22 04:45 Potassium 4.1 mmol/L (3.5-5.0) 12/20/22 04:45 Chloride 106 mmol/L (101-111) 12/20/22 04:45 Carbon Dioxide 26 mmol/L (21-32) 12/20/22 04:45 Anion Gap 7.0 (6-13) 12/20/22 04:45 BUN 16 mg/dL (6-20) 12/20/22 04:45 Creatinine 1.0 mg/dL (0.6-1.2) 12/20/22 04:45 Estimated GFR (MDRD) 73 (>89) L 12/20/22 04:45 Glucose 106 mg/dL (70-100) H 12/20/22 04:45 Calcium 8.6 mg/dL (8.5-10.3) 12/20/22 04:45 Magnesium 2.0 mg/dL (1.7-2.8) 12/19/22 09:15 Total Bilirubin 0.7 mg/dL (0.2-1.0) 12/18/22 18:42 AST 30 IU/L (10-42) 12/18/22 18:42 ALT 31 IU/L (10-60) 12/18/22 18:42 Alkaline Phosphatase 49 IU/L (42-121) 12/18/22 18:42 Troponin I High Sens 4.0 ng/L (2.3-19.7) 12/18/22 18:42 Total Protein 7.1 g/dL (6.7-8.2) 12/18/22 18:42 Albumin 4.0 g/dL (3.2-5.5) 12/18/22 18:42 Globulin 3.1 g/dL (2.1-4.2) 12/18/22 18:42 Albumin/Globulin Ratio 1.3 (1.0-2.2) 12/18/22 18:42 Triglycerides 94 mg/dL (-149) 12/18/22 18:42 Cholesterol 139 mg/dL (-199) 12/18/22 18:42 LDL Cholesterol, Calc 70 mg/dL (-129) 12/18/22 18:42 VLDL Cholesterol 19 mg/dL 12/18/22 18:42 HDL Cholesterol 50 mg/dL (60-) L 12/18/22 18:42 LDL/HDL Ratio 1.4 (<3.6) 12/18/22 18:42 Cholesterol/HDL Ratio 2.8 (<5.0) 12/18/22 18:42 Lipase 37 U/L (22-51) 12/18/22 18:42 Urine Color YELLOW 12/19/22 14:35 Urine Clarity CLEAR (CLEAR) 12/19/22 14:35 Urine pH 6.0 PH (5.0-7.5) 12/19/22 14:35 Ur Specific [place] <=1.005 (1.002-1.030) 12/19/22 14:35 Urine Protein NEGATIVE mg/dL (NEGATIVE) 12/19/22 14:35 Urine Glucose (UA) NEGATIVE mg/dL (NEGATIVE) 12/19/22 14:35 Urine Ketones NEGATIVE mg/dL (NEGATIVE) 12/19/22 14:35 Urine Occult Blood NEGATIVE (NEGATIVE) 12/19/22 14:35 Urine Nitrite NEGATIVE (NEGATIVE) 12/19/22 14:35 Urine Bilirubin NEGATIVE (NEGATIVE) 12/19/22 14:35 Urine Urobilinogen 0.2 (NORMAL) E.U./dL (NORMAL) 12/19/22 14:35 Ur Leukocyte Esterase NEGATIVE (NEGATIVE) 12/19/22 14:35 Urine RBC None Seen /HPF (0-5) 12/19/22 14:35 Urine WBC 0-3 /HPF (0-3) 12/19/22 14:35 Ur Squamous Epith Cells NONE SEEN (<= Few) 12/19/22 14:35 Urine Bacteria None Seen /HPF (None Seen) 12/19/22 14:35 Urine Culture Comments NOT INDICATED 12/19/22 14:35 - Procedures Procedures: Procedures COLONOSCOPY (12/27/13)
[2022-12-20] MEDS: CETIRIZINE 10 MG TABLET PO SCH (08:22)
[2022-12-20] MEDS: ASPIRIN EC 81 MG TABLET PO SCH (08:22)
[2022-12-20] MEDS: MULTIVITAMIN W/MINERALS TABLET PO SCH (08:22)
[2022-12-20] MEDS ORDERED: GADOBUTROL 15 MMOL/15 ML VIAL IVP ONE (09:23)
--- NOTE | 2022-12-20 10:29 | MRI Report ---
PROCEDURE: MRI brain with and without contrast INDICATIONS: Neurologic deficit CONTRAST: gadavist 12.7ml TECHNIQUE: Noncontrast axial T1 spin echo, axial T2 fast spin echo, sagittal and axial FLAIR, coronal T2 fast sp in echo, axial gradient echo, axial diffusion and ADC through the brain. After the administration of contrast, axial and coronal T1 spin echo with fat saturation through the brain. COMPARISON: CT angiogram head 12/18/2022 FINDINGS: Image quality: Excellent. CSF spaces: Basal cisterns are patent. No extra-axial fluid collections. Ventricles are normal in size and shape. Brain: No midline shift. No intracranial bleeds or masses. No abnormal intracranial enhancement. There is cerebral volume loss for age. There is periventricular white matter chronic small vessel is chemic change. The brainstem appears normal. Diffusion-weighted images demonstrate no acute infarct . Moderate atrophy and white matter chronic ischemic change. Senescent mineralization of both basal ganglia and the cerebellar dentate nuclei noted Normal intravascular flow voids are present. Small focus of enhancement on the prior CT angiogram corresponds with normal choroid plexus in the te mporal horn of the right lateral ventricle Skull and face: Calvarial marrow is normal in signal. Orbits appear normal. Sinuses: Sinuses and mastoids appear clear. IMPRESSION: Atrophy and white matter chronic ischemic change without acute infarct, hemorrhage or mass lesion. Small focus of enhancement on the prior CT angiogram corresponds with normal choroid plexus and tempo ral horn right lateral ventricle Reviewed by: Kwesi Macedo MD on 12/20/2022 9:27 AM NAIMA Approved by: Kwesi Macedo MD on 12/20/2022 9:27 AM AKGENET Station ID: [id number]
--- NOTE | 2022-12-20 10:36 | MRI Report ---
PROCEDURE: MR angiogram brain without contrast INDICATIONS: Neurologic deficit TECHNIQUE: Noncontrast axial 3-D [id number] MR angiogram, with 3-dimensional maximum intensity projection (M IP) reformats of the internal carotid arteries and posterior circulation then performed. COMPARISON: CT angiogram brain 12/28/2022 FINDINGS: Image quality: Excellent. Anterior circulation: Intracranial internal carotid arteries demonstrate normal size and intralumina l flow signal. The flow within the paired anterior cerebral arteries is normal and symmetric. The f low within the middle cerebral arteries is normal and symmetric. The anterior communicating artery i s seen. No stenoses, occlusions, or aneurysms. Posterior circulation: Visualized portions of the vertebral arteries demonstrate normal caliber, and join to form a normal appearing basilar artery. Right P1 NETWORK DEVELOPER is hypoplastic, and is widely patent ri ght posterior communicating artery. Distal NETWORK DEVELOPER unremarkable bilateral. No stenoses, occlusions, or a neurysms. IMPRESSION: Normal MR angiogram of the brain. No vascular malformation. Reviewed by: Kwesi Macedo MD on 12/20/2022 9:35 AM NAIMA Approved by: Kwesi Macedo MD on 12/20/2022 9:35 AM NAIMA Station ID: [id number]
[2022-12-20] MEDS ORDERED: hydroCHLOROthiazide 25 MG TABLET PO SCH (11:30)
[2022-12-20] MEDS: LOSARTAN 50 MG TABLET PO SCH (11:59)
[2022-12-20] MEDS ORDERED: HYDROGEN PEROXIDE 3% 473 ML BOTTLE TOP ONE (18:37)
[2022-12-20] MEDS ORDERED: ATORVASTATIN 40 MG TABLET PO SCH (21:00)
[2022-12-21] MEDS: SODIUM CHLORIDE FLUSH 0.9% 10 ML SYRINGE IVP SCH ×2 (04:43→07:57)
[2022-12-21] MEDS: MULTIVITAMIN W/MINERALS TABLET PO SCH (07:56)
[2022-12-21] MEDS: ASPIRIN EC 81 MG TABLET PO SCH (07:56)
[2022-12-21] MEDS: LOSARTAN 50 MG TABLET PO SCH (07:56)
[2022-12-21] MEDS: CETIRIZINE 10 MG TABLET PO SCH (07:57)
[2022-12-21 10:49] VITALS: BP 130/77
--- NOTE | 2022-12-21 11:05 | Discharge Plan ---
Discharge Plan Problem Reviewed?: Yes Disposition: Home, Self Care Condition: Fair Diet: Cardiac Activity Restrictions: Activity as Tolerated Shower Restrictions: Yes Driving Restrictions: Yes Health Concerns: You are a 72-year-old white man who has a history of high blood pressure, and high cholesterol who came to our emergency room feeling lightheaded, dizzy, and off balance. It was sudden onset while you were preparing dinner. Your reported that you were making nonsensical words. The treatment of stroke is usually within 2 to 3 hours of symptoms beginning. You presented to the emergency room outside the window of treatment. As such teleneurology felt that you would not be treated for an acute stroke and you would have to evolve naturally. Your studies were all negative for stroke. We did a CAT scan of your brain, and MRI of your brain, and angiograms of all the arteries in your brain. 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 You have the normal signs of aging in the brain. This does not mean that you did not have an event, it just means that our x-rays did not find it. Your symptoms have now resolved and you feel normal. Plan of Treatment: Reducing someone's risk of stroke or heart attack means reducing all the individual risk factors that contribute. High blood pressure, high cholesterol, diabetes, smoking, and too much drinking all contribute to the risk of stroke and heart attack. In your case you are only to risk of high blood pressure and high cholesterol. Looking at your blood work, and your blood pressure, those are actually well controlled. The only change we are going to give to your medication is making sure that you take a baby aspirin a day. You are already on high blood pressure medication and high cholesterol medication. Your cholesterol was 139. Your bad cholesterol/HDL was 70, and your good cholesterol/HDL was 50. All of these numbers are within what we would want. One of your fasting glucoses was borderline high. The cutoff for diabetes is 126 and you are 169. But this morning, on the morning of discharge you were 106. Have your primary care provider check your glucose in the next few months to make sure you are not developing early diabetes. Care Goals: To reduce your risk of heart attack and stroke is much as possible. Assessment: Patient is alert, oriented, able to follow instructions No Smoking: If you smoke, Please STOP! Call for help. Follow-up with: Jordan Dennis MD [Primary Care Provider] -
--- NOTE | 2022-12-21 11:18 | DISCHARGE SUMMARY ---
"Discharge Summary Admit Date: 12/18/22 Discharge Date: 12/21/22 Discharging Provider: Aleshia Alegria MD Primary Care Provider: Jordan Dennis MD Code Status: Attempt Resuscitation Condition at Discharge: Fair Discharge Disposition: 01 Home, Self Care - DIAGNOSES Discharge Diagnoses with Status of Each Condition: 1. Strokelike symptoms with patent foramen ovale. 2. Temporal lobe lesion on CT 3. Gross hematuria 4. Mobitz type I second-degree AV block 5. Obstructive sleep apnea 6. Hypertension 7. Hyperlipidemia 8. Gastroesophageal reflux disease - HPI History of Present Illness: 72-year-old male with PMH HTN, HLP, was brought to the emergency department via private vehicle for evaluation of feeling lightheaded, dizzy and ataxic. Reportedly he was in the kitchen helping prepare dinner when he began to feel lightheaded and dizzy. States he felt off balance. He felt like he was in a fog in his brain. He felt things that were slowing down and then suddenly speeding up. He thought he might do well to sit down. His reports that he was unable to walk without holding onto a wall. She reports that he seemed to make nonsensical words. He checked his blood pressure at home and it was 150/70. onset of symptoms 1600 Pt is alert and awake at the time of my examination. able to talk and move all extremities Denies SHIELDS, chest pain, SOB, Nausea, vomiting, dioarrhea, constipation or s ymptoms On presentaion, pt was afebrile Labs showed normal WBC, CTA head showed no acute intracranial abnormalities CTA neck shwoed mild carotid stenosis As per ER physician, pt was out of window for TPA and she also consulted with neurologist electronic equipment repairer , Dr Kearney who rec MRI brain Pt is admitted due to for further evaluation for TIA/CVA History - Past Medical History Cardiovascular: reports: High cholesterol Respiratory: reports: None, Sleep apnea Endocrine/Autoimmune: reports: None GI: reports: Colon polyps : reports: None HEENT: reports: None Psych: reports: None Musculoskeletal: reports: None Derm: reports: None MRSA Hx?: No - Past Surgical History General: reports: Colonoscopy Ortho: reports: Other - CONSULTS | PROCEDURES Procedures: 1. Chest x-ray is without acute cardiopulmonary abnormality 2. Head and neck CT angiogram with open arteries. At the medial aspect of the right temporal lobe there is an enhancing structure measuring 8 mm. Vascular structure, not an enhancing mass. May represent venous structure. 3. Brain MRI with atrophy and white matter chronic ischemic changes. No acute infarct, hemorrhage or mass lesion. Small focus of enhancement on the prior CT angiogram corresponds with normal choroid plexus and temporal horn right lateral ventricle. 4. Brain MRI with normal MR angiogram of the brain. No vascular malformation. 5. Echocardiogram drawn prior to discharge is a preliminary reading. Final reading will need to be reviewed.Normal left ventricular size and function. Ejection fraction 55%. Left atrium normal. Normal right ventricle in size and function. Pulmonary pressures could not be measured. Normal valve structure and function. A PFO is likely present based on bubble study. 6. Triglyceride 94, cholesterol 139, LDL 70, VLDL 19. HDL 50. - HOSPITAL COURSE Hospital Course: Patient developed sudden dizziness and ataxia at home. He was unclear if he had possibly had exposure to a high dose of THC, because the son keeps THC at the patient's house. He reported not only abnormal balance, but also racing thoughts, therefore he thought maybe there was drug exposure. In the ER his ambulation was abnormal, he was listing to one side, but a supine exam was normal for motor and sensory exam. His head CT showed Telestroke doctor said he was out of the window to get TPA treatment. Patient was started on aspirin daily and received Lipitor 80 mg. He was already on simvastatin 40 mg at home which is a maximum dose. Labs were reviewed and he has a good LDL of 70 and HDL of 50, on his home statin med. By the morning of 12/19, the day after admission, patient states that all his symptoms resolved. He was able to walk to the bathroom and has no listing or s ensation of racing thoughts His brain MRA and brain MRI were done. The brain MRA showed no occulsions and no evidence of AVM. The MRI showed no stroke and the abnormal area on CT is a normal choroid plexus This may have been a TIA therefore. Telemetry was without atrial fib. PT and OT evaluations were done. Echo with bubble study is as above. He was continued on daily baby aspirin and statin. All of this was discussed with the patient, as well as his who is at the bedside. All the above was discussed with the patient, and at bedside Since the ED provider H&P said that both external ear canals are 100% occluded, and this could have added to his ataxia, we ordered bilat ear irrigation>> The RN reported we have no otoscope available on [facility]. No irrigation was done. For his hypertension, we continued with Losartan but not continue with HCTZ, because it could be adding to his dizziness. also, orthostatic vital signs to be checked. (2) Temporal lobe lesion Assessment/Plan: This was seen on CTA of the head. Unsure if it is a mass or a vascular lesion like an AVM MRA of the brain was done and did not show an AVM, no vascular abnormality was reported. His brain MRI showed no stroke and the abnormal area on yesterday's CT is a normal choroid plexus. The above was discussed with pt and at beside (3) Gross hematuria Assessment/Plan: Since 12/18 his RN noticed 2 episodes of a spot of blood on his underwear anteriorly. When I asked him about both of these episodes, he remembered he also had severe dysuria for a few seconds when he was urinating. He thinks he passed a stone. A U/A was done 12/19, I reviewed the results, which were normal. Plan: Straining all urine is now ordered, look for a stone A Urology outpt eval may be needed after discharge (4) Mobitz 1 second-degree heart block Assessment/Plan: The patient's admission EKG showed first-degree block. Overnight this last night he had at least 5 episodes seen by nursing, reported to me,of Mobitz 1 second-degree heart block. I reviewed the telemetry strips and concur. Echo was done and telemetry had no further abnormalities. I told the patient this type of problem is seen in Sleep apnea pts and he then revealed he has sleepapnea and is on nasal pillow CPAP device whichhe did not bring to use here. (5) Sleep apnea Assessment/Plan: It was discussed with the patient and the day before discharge, that bracd ycardia and Mobitz 1 block are often seen in Sleep apnea pts and he then revealed (for the first time), that he has sleep apnea and is on nasal pillow CPAP device which he did not bring to use here. CPAP from home was ordered to use here, however the does not want to drive in the dark and the [place] min [place] (6) HTN Assessment/Plan: permissive hypertension was allowed empirically. Lorsartan was resumed. (7) Hyperlipidemia Assessment/Plan: He takes simvastatin at home. We will continue with the high-dose Lipitor currently (8) GERD Assessment/Plan: Famotidine restartedf when his med list is reconciled by pharmacy At discharge temperature was 36.4. Heart rate 70. Blood pressure 130/77. Supine. Sitting he was 117/74. Standing 114/75. Respirations were 18 and he was 98% on room air. Lungs are clear, regular rate and rhythm, no murmur. The abdomen is soft and nontender. He is alert and oriented to person place and time. Can follow commands. Has no gross focal motor deficits, or cranial nerve deficits. Greater than 30 minutes was spent coordinating discharge. - ALLERGIES Allergies/Adverse Reactions: Allergies Allergy/AdvReac Type Severity Reaction Status Date / Time No Known Drug Allergies Allergy Verified 12/18/22 18:23 - MEDICATIONS Home Medications: Ambulatory Orders Medication Instructions Recorded Confirmed Cetirizine HCl [Aller-Luis] 10 mg PO DAILY 12/26/13 12/19/22 Glucosamine Sulfate Dipot Chlr 1,000 mg PO DAILY 12/26/13 12/19/22 [Glucosamine] Multivitamin [Multi-Vitamin Daily] 1 each PO DAILY 12/26/13 12/19/22 [place]-3/Dha/Epa/Fish Oil [Fish Oil 1,000 mg PO DAILY 12/26/13 12/19/22 Dr 500 mg Softgel] Simvastatin 40 mg PO HS 12/26/13 12/19/22 Famotidine 1 tab PO DAILY 12/20/22 12/20/22 Losartan/Hydrochlorothiazide 1 tab PO DAILY 12/20/22 12/20/22 [Hyzaar 100-25 Tablet] Aspirin EC [Ecotrin] 81 mg PO DAILY tab 12/21/22 - LABS Result Diagrams: 12/20/22 04:45 12/20/22 04:45"
[2022-12-21] MEDS ORDERED: FAMOTIDINE 20 MG TABLET PO SCH (11:25)
== END 2022-12-21 12:30 | disposition home or self-care (01) | DRG 92 ==
LOC: ED 18:15 → MS2 21:36
PROVIDERS: ADMIT Internal Medicine; ATTEND Specialist
DX: I63.9 Cerebral infarction, unspecified (principal); R27.0 Ataxia, unspecified; Q21.12 Patent foramen ovale; R29.702 NIHSS score 2; E78.00 Pure hypercholesterolemia, unspecified; G47.30 Sleep apnea, unspecified; R31.0 Gross hematuria; I44.1 Atrioventricular block, second degree; G47.33 Obstructive sleep apnea (adult) (pediatric); I10 Essential (primary) hypertension; E78.5 Hyperlipidemia, unspecified; K21.9 Gastro-esophageal reflux disease without esophagitis; G93.9 Disorder of brain, unspecified
CPT/HCPCS: 36415; 70496; 70498; 70546; 70553; 71045; 80048; 80053; 80061; 81001; 83690; 83735; 84484; 85025; 85610; 93005; 93306; 97161; 97165; 99285; A9270; A9585; Q9967; 83721; 87086

== ENCOUNTER 2023-02-25 08:28 | Outpatient (CLI) | payer MEDICARE, BC ==
[2023-02-25 12:06] LABS: BASOPHILS % (AUTO) 0.9 %; EOSINOPHILS # (AUTO) 0.2 10^3/uL (0.0-0.7); EOSINOPHILS % (AUTO) 5.2 %; HGB - HEMOGLOBIN 14.9 g/dL (14.0-18.0); LYMPHOCYTES # (AUTO) 0.7 10^3/uL (1.5-3.5); LYMPHOCYTES % (AUTO) 20.6 %; MEAN CORPUSCULAR HEMOGLOBIN 31.9 pg (27.0-31.0); MEAN CORPUSCULAR HGB CONC 33.9 g/dL (32.0-36.0); MEAN CORPUSCULAR VOLUME 94.2 fL (80.0-94.0); MONOCYTES # (AUTO) 0.7 10^3/uL (0.0-1.0); MONOCYTES % (AUTO) 20.9 %; NEUTROPHILS # (AUTO) 1.7 10^3/uL (1.5-6.6); NEUTROPHILS % (AUTO) 52.1 %; PLT - PLATELET COUNT 205 10^3/uL (130-450); RED BLOOD COUNT 4.67 10^6/uL (4.70-6.10); RED CELL DISTRIBUTION WIDTH 13.1 % (12.0-15.0); WHITE BLOOD COUNT 3.3 x10^3/uL (4.8-10.8)
[2023-02-25 12:10] LABS: ESTIMATED AVERAGE GLUCOSE 114 mg/dL (70-100); HEMOGLOBIN A1c% 5.6 % (4.27-6.07)
[2023-02-25 12:17] LABS: ALBUMIN/GLOBULIN RATIO 1.2 (1.0-2.2); ALKALINE PHOSPHATASE 37 IU/L (42-121); ALT ALANINE AMINOTRANSFERASE 39 IU/L (10-60); AST ASPARTATE AMINOTRANSFERASE 36 IU/L (10-42); BILIRUBIN,TOTAL 0.8 mg/dL (0.2-1.0); BUN - BLOOD UREA NITROGEN 26 mg/dL (6-20); CARBON DIOXIDE - CO2 27 mmol/L (21-32); CHLORIDE 109 mmol/L (101-111); CHOL/HDL RATIO 2.7 (<5.0); CHOLESTEROL 123 mg/dL; GFR - MDRD 73 (>89); GLUCOSE 104 mg/dL (70-100); HDL CHOLESTEROL 45 mg/dL; LDL CHOLESTEROL,CALCULATED 58 mg/dL; LDL/HDL RATIO 1.3 (<3.6); POTASSIUM 4.1 mmol/L (3.5-5.0); SODIUM 141 mmol/L (135-145); TOTAL PROTEIN 7.3 g/dL (6.7-8.2); TRIGLYCERIDES 99 mg/dL; VLDL CHOLESTEROL 20 mg/dL
[2023-02-25 12:28] LABS: THYROID STIMULATING HORMONE 2.32 uIU/mL (0.34-5.60)
[2023-02-25 17:42] LABS: CREATININE,URINE 182.1 mg/dL; MICROALBUM/CREATININE RATIO,UR 2.7 ug/mg (<30.0); MICROALBUMIN,URINE 0.5 mg/dL (0-300.0)
== END 2023-02-25 08:29 | disposition home or self-care (01) ==
LOC: LAB.N 08:28
PROVIDERS: ATTEND Internal Medicine
DX: E78.5 Hyperlipidemia, unspecified (principal); G62.9 Polyneuropathy, unspecified; R73.01 Impaired fasting glucose; Z12.5 Encounter for screening for malignant neoplasm of prostate; F34.1 Dysthymic disorder; I10 Essential (primary) hypertension
CPT/HCPCS: 36415; 80053; 80061; 82043; 82570; 82607; 83036; 84443; 85025; G0103; 83721; 84153

== ENCOUNTER 2023-04-12 10:19 | Outpatient (CLI) | payer MEDICARE, BC ==
--- NOTE | 2023-04-12 10:45 | Sleep Patient Instructions ---
Sleep Center Visit Summary - Patient Visit Information Reason for Visit: Annual visit for PAP therapy - Patient Instructions Additional Instructions: You will continue with CPAP therapy with pressure set at 6 cmH2O. A supply prescription will be updated with your DME. We encourage you to continue to try to lose weight. Please follow up with the sleep care office in 1 year. - Clinic Information Contact: [facility] [address] [place] [address] [email or web address] T: [phone]
--- NOTE | 2023-04-12 10:47 | SLEEP CARE CONSULTATION ---
Information from patient questionnaire entered by Grecia Veras. I have reviewed and concur with the information entered by Grecia Veras. This document represents the service I personally performed and the decisions made by me, Lisa Lau ARNP. History of Present Illness Service Date and Time: 04/12/2023 1019 Previous diagnosis: Mild, Obstructive Sleep Apnea-Hypopnea Syndrome AHI: 6.2 Reason for follow up: annual (LAST SEEN 03/2022) Equipment type: CPAP (Taryn Dreamstation, recertified; SD CARD NEEDED) Equipment obtained from: Other ([facility]: getting supplies as needed) Mask style: Nasal pillows Backup mask available: Yes (old mask) Last cushion change: 1 month Prior sleep studies: Yes Year and Where: 2013 [facility] HPI additional information: HANG MANCERA was diagnosed to have mild, AHI 6.2, obstructive sleep apnea-hypopnea syndrome and returned today for CPAP therapy annual follow-up. Sleep Study - Results Prior sleep studies: Yes Year and Where: 2013 [facility] CPAP Compliance Data - Data Reviewed with Patient Average duration of nightly device use: 6 hours 45 minutes Compliance rate %: 73.6 (152/182 days used) Current pressure setting (cmH2O): 6 Average residual AHI: 3.3 Average large leak: 3 secs Subjective Missed days of use due to: reports: travel (3 different vacations) Patient concerns: denies: aerophagia, mask discomfort, air blowing in eyes, mask leak noise, condensation in mask/hose, nasal congestion, dry mouth, nose, throat, epistaxis Observed to snore while using device: No Current pressure setting perceived as: comfortable On therapy, patient: reports: other (can't really tell a difference with or without PAP). denies: drowsiness while driving Initial [place] Sleepiness Scale score: 6 (in 2013) Current [place] Sleepiness Scale score: 6 Allergies and Home Medications Known drug allergies: No Drug allergies reviewed: Yes Home medication list reviewed: Yes (Famotidine) Allergy and home medication list: Allergies No Known Drug Allergies Allergy (Verified 04/11/23 08:59) Review of Systems Review of systems same as previous: Yes (no changes) Physical Exam Vital signs obtained and entered by: Lisa Marquez NP Blood Pressure: 109/67 Cuff size: wrist (right) Heart Rate: 75 O2 Saturation: 96 Height: 6 ft 1.5 in Weight: 269 lb 12.8 oz Body Mass Index: 35.1 BMI Classification: Obese Impression and Plan 1. Obstructive Sleep Apnea-Hypopnea Syndrome, mild, with good treatment compliance and good apnea control. On CPAP therapy, the patient has better sleep quality and is more rested overall. Patient has significant improvement of their sleep apnea and is satisfied with current CPAP therapy. Patient denies problems with oral dryness, nasal congestion, epistaxis, skin irritation or aerophagia. Patient's apnea severity and rationale for treatment to reduce apnea, improve sleep quality and reduce cardiovascular and cerebrovascular events was reviewed. I also reviewed the benefit of consistent device use of CPAP for hypertension. 2. Obesity, unspecified. Currently patients BMI is 35.1. Obesity increases the risk of apnea, CPAP pressure requirements and overall health risks especially cardiovascular and diabetes. Thus patient is advised to lose weight. * Continue CPAP pressure at 6 cmH2O * Update supply prescription * Notify me if snoring with mask or feeling that the pressure is too much or too little * Attempt to lose weight * Call this office if any problems using CPAP * Return for follow up in 1 year, or sooner if concerns arise Counseling Topics: Spare mask, Weight loss health impact Visit Type: In Office Time Spent with Patient (minutes): 20 Provider Statement: I spent 100% of the Face to Face Visit with the patient with greater than 50% spent counseling the patient and coordination of care.
[2023-04-12 10:48] VITALS: BP 109/67
== END 2023-04-12 10:20 | disposition home or self-care (01) ==
LOC: SC 10:19
PROVIDERS: ATTEND Nurse Practitioner Family
DX: G47.33 Obstructive sleep apnea (adult) (pediatric) (principal); E66.9 Obesity, unspecified; Z68.35 Body mass index [BMI] 35.0-35.9, adult
CPT/HCPCS: 99213; G0463; 99212

== ENCOUNTER 2024-01-28 09:12 | Outpatient (CLI) | payer MEDICARE, BC ==
[2024-01-28 20:08] LABS: BASOPHILS % (AUTO) 0.9 %; EOSINOPHILS # (AUTO) 0.2 10^3/uL (0.0-0.7); EOSINOPHILS % (AUTO) 5.3 %; HCT - HEMATOCRIT 48.3 % (42.0-52.0); HGB - HEMOGLOBIN 15.3 g/dL (14.0-18.0); LYMPHOCYTES # (AUTO) 0.8 10^3/uL (1.5-3.5); LYMPHOCYTES % (AUTO) 23.6 %; MEAN CORPUSCULAR HEMOGLOBIN 30.4 pg (27.0-31.0); MEAN CORPUSCULAR HGB CONC 31.7 g/dL (32.0-36.0); MONOCYTES # (AUTO) 0.5 10^3/uL (0.0-1.0); MONOCYTES % (AUTO) 14.8 %; NEUTROPHILS # (AUTO) 1.8 10^3/uL (1.5-6.6); NEUTROPHILS % (AUTO) 55.1 %; PLT - PLATELET COUNT 202 10^3/uL (130-450); RED BLOOD COUNT 5.03 10^6/uL (4.70-6.10); RED CELL DISTRIBUTION WIDTH 13.1 % (12.0-15.0); WHITE BLOOD COUNT 3.2 x10^3/uL (4.8-10.8)
[2024-01-28 20:29] LABS: ALBUMIN 4.3 g/dL (3.2-5.5); ALBUMIN/GLOBULIN RATIO 1.4 (1.0-2.2); ALKALINE PHOSPHATASE 37 IU/L (42-121); ALT ALANINE AMINOTRANSFERASE 21 IU/L (10-60); AST ASPARTATE AMINOTRANSFERASE 24 IU/L (10-42); BILIRUBIN,TOTAL 0.8 mg/dL (0.2-1.0); BUN - BLOOD UREA NITROGEN 16 mg/dL (6-20); CALCIUM 9.9 mg/dL (8.5-10.3); CARBON DIOXIDE - CO2 29 mmol/L (21-32); CHLORIDE 105 mmol/L (101-111); CHOL/HDL RATIO 2.6 (<5.0); CHOLESTEROL 125 mg/dL; GFR - MDRD 73 (>89); GLUCOSE 109 mg/dL (74-104); HDL CHOLESTEROL 49 mg/dL; LDL CHOLESTEROL,CALCULATED 59 mg/dL; LDL/HDL RATIO 1.2 (<3.6); POTASSIUM 4.4 mmol/L (3.5-4.5); SODIUM 138 mmol/L (135-145); TOTAL PROTEIN 7.3 g/dL (6.4-8.9); TRIGLYCERIDES 85 mg/dL (48-352); VLDL CHOLESTEROL 17 mg/dL
[2024-01-28 20:37] LABS: THYROID STIMULATING HORMONE 2.63 uIU/mL (0.34-5.60)
[2024-01-29 08:08] LABS: ESTIMATED AVERAGE GLUCOSE 117 mg/dL (70-100); HEMOGLOBIN A1c% 5.7 % (4.27-6.07)
== END 2024-01-28 09:13 | disposition home or self-care (01) ==
LOC: LAB.N 09:12
PROVIDERS: ATTEND Internal Medicine
DX: I10 Essential (primary) hypertension (principal); E78.5 Hyperlipidemia, unspecified; E53.8 Deficiency of other specified B group vitamins; R73.01 Impaired fasting glucose; Z12.5 Encounter for screening for malignant neoplasm of prostate; F34.1 Dysthymic disorder
CPT/HCPCS: 36415; 80053; 80061; 82607; 83036; 84443; 85025; G0103; 83721; 84153

== ENCOUNTER 2024-02-24 12:45 | Outpatient (CLI) | payer MEDICARE, BC | END 2024-02-24 13:00 | disposition home or self-care (01) | LOC: LAB.N 12:45 | PROVIDERS: ATTEND Physician Assistant Medical | DX: L02.212 Cutaneous abscess of back [any part, except buttock and flank] (principal) | CPT/HCPCS: 87070; 87077; 87181; 87205 ==